=== PATIENT | female | born 1960 | race Caucasian/White ===

== ENCOUNTER → 2016-04-24 | Outpatient (CLI) | payer OTHER, BC ==
[~2016-04-24] VITALS: Ht 162.6 cm; Wt 65.3 kg
[~2016-04-24] MED LIST: ALDACTONE25 MG PO; AMBIEN 10 MG TA10 MG PO; ANTIVERT25 MG PO; ASPIRIN EC81 M1 PO; AUGMENTIN 875875 MG PO; B-12500 MCG PO; BACLOFEN 10 MG10 MG PO; BACLOFEN 10MG T10 MG PO; BENAZEPRIL HCL40 MG PO; BENTYL 20 MG TA20 M1 PO; BYSTOLIC 5 MG5 M1 PO; CARISOPRODOL 3350 MG PO; CYCLOBENZAPRINE5 MG PO; CYMBALTA60 MG PO; DHEA25 MG PO; ESTRACE1 MG PO; HYDROCODON-ACE1 EAC8 PO; INVOKANA100 MG PO; LANTUS SUBQ; LYRICA 50 MG50 MG PO; MORPHINE SULFATE PO; MS CONTIN 30 MG30 M1 GT; MS CONTIN 30 MG30 M1 PO; MS CONTIN15 MG PO; MS CONTIN30 MG PO; NEURONTIN 300300 M1 PO; NEXIUM40 MG PO; NORVASC10 MG PO; NOVOLOG MI100 UNIT/2 PO; OXYCONTIN10 M1 PO; SINGULAIR 10 MG10 M1 PO; SYMBICORT160 MCG/4. INH; VICODIN 5-5001 EACH PO; ZANAFLEX4 MG PO; ZETIA10 MG PO
--- NOTE | ~2016-04-24 | HPC ---
[facility] [place] [address] PAIN MANAGEMENT CONSULTATION Name: NORMAN KENNEDY Room #: REG RONNIE Moises.#: [id number] Admission: 04/24/16 Attend Phys: Danny Manrique MD Discharge: Date of : 60 Report #: [id number] THIS REPORT FOR: //name// CC: Elan Manrique DATE OF SERVICE: 04/24/2016 The patient presents back to the pain clinic today with her . She is on medication help with chronic pain related to multiple pain generators. She has a history of previous laminectomy. She has chronic low back pain with radiculopathy. 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 This combination disorders has created for her chronic debility. Medications have been very helpful and allow her to be more functional. She presents to the clinic today with her 2 grandsons, a twins, age 4. They could not be cuter ____. She seems quite happy and contented with them. She seems positive ____. MEDICATIONS: Reviewed and reconciled. She takes morphine 30 mg at bedtime and 15 mg twice a day, gabapentin 300 mg t.i.d., cyclobenzaprine 5 mg b.i.d., baclofen b.i.d., Ambien, Cymbalta, Zetia, ____, amlodipine, insulin, Symbicort. ALLERGIES: LASIX. PAST MEDICAL HISTORY: Significant for depression, myotonic dystrophy, rheumatoid arthritis, insulin-dependent diabetes. PHYSICAL EXAMINATION: Pleasant, alert and oriented, without signs of overmedication. She has a slightly unsteady gait. She complains of pain across the low back with myofascial tenderness in the lower extremities. IMPRESSION: 1. Chronic low back pain with radiculopathy. 2. Management of high risk medication. 3. Myotonic dystrophy. 4. Rheumatoid arthritis. 5. History of depression. 6. Asthma. 7. Insulin-dependent diabetes. PLAN: Medications renewed under terms of our agreement that include MS Contin 15 mg twice daily with 30 mg at bedtime, gabapentin 300 mg 3 times daily. Importance of safeguarding all medications, especially with young ones around [address] [address] PAIN MANAGEMENT CONSULTATION Name: NORMAN KENNEDY Room #: REG [facility].#: [id number] Admission: 04/24/16 Attend Phys: Danny Manrique MD Discharge: Date of : 60 Report #: [id number] was discussed. A followup visit is planned in 3 months. Her last urine drug screen was 6 months ago. <ELECTRONICALLY SIGNED> By: Danny Manrique MD 04/26/16 1329 1616 33 Danny Manrique MD /nt
[2016-04-24 13:04] VITALS: BP 149/84
== END ==
LOC: PAIN 07:28
DX: M45.9 Ankylosing spondylitis of unspecified sites in spine (principal); J45.909 Unspecified asthma, uncomplicated; E11.9 Type 2 diabetes mellitus without complications; G71.11 Myotonic muscular dystrophy; I10 Essential (primary) hypertension

== ENCOUNTER → 2016-07-11 | Outpatient (CLI) | payer OTHER, BC ==
[~2016-07-11] VITALS: Ht 160 cm; Wt 68.3 kg
--- NOTE | ~2016-07-11 | HPC ---
[facility] [address] [place] [address] PAIN MANAGEMENT CONSULTATION Name: NORMAN KENNEDY Room #: REG [facility].#: [id number] Admission: 07/11/16 Attend Phys: Danny Manrique MD Discharge: Date of : 60 Report #: [id number] THIS REPORT FOR: //name// CC: Elan Manrique DATE OF SERVICE: 07/11/2016 REASON FOR VISIT: Followup visit for muscular dystrophy, chronic low back pain with radiculopathy and management of high-risk medication. HISTORY OF PRESENT ILLNESS: The patient returns to pain clinic today for me to renew medications that I provide for her for intractable pain. She has done pretty well over the course of the last 3 months, have been no hospitalizations and no other additional office visits to other physicians. She is here for renewal of her medicines, which we provide for her carefully under terms of an opioid agreement. MEDICATIONS PROVIDED: Gabapentin 300 mg t.i.d. and MS Contin 15 mg morning and noon and 30 mg at bedtime. All other medications including cyclobenzaprine, baclofen, Ambien, Cymbalta, Zetia, amlodipine, insulin and Symbicort were provided by Dr. Elan Pressley. ALLERGIES: LASIX. PAST MEDICAL HISTORY: Significant for myotonic dystrophy, rheumatoid arthritis, insulin-dependent diabetes and depression. PHYSICAL EXAMINATION: GENERAL: She is pleasant, alert and oriented. She does not show signs of depression or anxiety day. She scores her pain as a 4/10. VITAL SIGNS: Blood pressure is 152/82, heart rate is 83 and BMI is 26.7. MUSCULOSKELETAL: She is able to move from sitting to standing position. She walks with somewhat spastic or weaken gait. She is unsteady a bit on her feet. Straight leg raising bilaterally reproduces radicular symptoms into the legs, which we have treated previously before with epidural injections. RESPIRATORY: Her breathing is comfortable. There is no evidence of ongoing asthma with no wheezing. IMPRESSION: 1. Chronic low back pain with radiculopathy. 2. Myotonic dystrophy. 3. Rheumatoid arthritis. 4. History of depression, currently in remission. 5. Asthma. [facility] [address] [place] [address] PAIN MANAGEMENT CONSULTATION Name: BRENTNORMAN ADKINS Room #: [facility].#: [id number] Admission: 07/11/16 Attend Phys: Danny Manrique MD Discharge: Date of : 60 Report #: [id number] 6. Insulin-dependent diabetes. PLAN: I renewed her medications gabapentin and MS Contin under terms of our agreement and reviewed with her the important aspects of care. We manage all medications. We provide for all medications for one pharmacy. She has signed her opioid agreement. She will be subjected to occasional urine drug screen, which I decided against today. She must safeguard all medications. Followup visit planned in the pain clinic and possibly in the next few weeks for an epidural steroid injection, but we were unable to perform that for her today at her request because of preauthorization requirements. By: [id number] Danny Manrique MD /nt
[2016-07-11 13:16] VITALS: BP 152/82
== END | disposition home or self-care (01) ==
LOC: PAIN 06:49
DX: M54.5 Low back pain (principal); M54.10 Radiculopathy, site unspecified; M06.9 Rheumatoid arthritis, unspecified; F32.9 Major depressive disorder, single episode, unspecified; J45.909 Unspecified asthma, uncomplicated; E11.9 Type 2 diabetes mellitus without complications

== ENCOUNTER → 2016-08-22 | Outpatient (CLI) | payer OTHER, BC ==
[~2016-08-22] VITALS: Ht 162.6 cm; Wt 67.5 kg
[~2016-08-22] MED LIST changes: +METHYLPHENIDATE5 MG PO
--- NOTE | ~2016-08-22 | HPC ---
[facility] [address] [address] PAIN MANAGEMENT CONSULTATION Name: BRENTNORMAN B Room #: REG RONNIE Moises.#: [id number] Admission: 08/22/16 Attend Phys: Danny Manrique MD Discharge: Date of : 60 Report #: [id number] THIS REPORT FOR: //name// CC: Elan Manrique DATE OF SERVICE: 08/22/2016 Followup visit for muscular dystrophy, low back pain with radiculopathy, post-laminectomy syndrome with radiculopathy. The patient returns to pain clinic today for an epidural injection. provided for medication on terms of an opioid agreement. She has been doing well on her current dose of morphine, which is at 60 mg a day right now. In addition to medication management, she occasionally has an epidural injection and radicular symptoms have increased to a point where they are overwriting her medication. Today, she is here for that purpose. Pain is tingling, burning and stabbing; it is a 4/10; it is in both legs. It radiates down through the L3-L4 distribution as well as in the back of her legs and L5-S1. She has had a previous laminectomy. The patient has asthma, insulin-dependent diabetes and myotonic muscular dystrophy. Gastroesophageal reflux disease is controlled and history of depression has also been improved recently. PHYSICAL EXAMINATION: Pleasant, alert and oriented, without oversedation. She is a little bit sleepy, she says and this is a common daily occurrence. Her blood pressure 152/82, heart rate 83 and BMI is 26. She moves from sitting to standing position. She is able to ambulate independently, although she has some weakness throughout the upper and lower extremities. She has mild spasticity with restrictive movements. IMPRESSION: 1. Chronic low back pain with radiculopathy. 2. Myotonic muscular dystrophy. 3. Rheumatoid arthritis. 4. History of depression, in remission. 5. Asthma. 6. Management of high risk medication. 7. Insulin-dependent diabetes. PLAN: Epidural steroid injection under fluoroscopic guidance. I have also agreed to renew her medications for a 4- and 8-week release dates so she has enough to be back for 3 months. I did see her in [place] [address] PAIN MANAGEMENT CONSULTATION Name: BRENTNORMAN PRATER [id number] Admission: 08/22/16 Attend Phys: Danny Manrique MD Discharge: Date of : 60 Report #: [id number] We discussed her constant low energy. She may benefit from the use of methylphenidate, which I have agreed to give her as a trial this month. Risks and benefits of the medication removed were reviewed. PROCEDURE: Epidural steroid injection under fluoroscopic guidance. She was taken to fluoroscopic suite, placed prone, skin prepped with ChloraPrep. Skin anesthetized over the L3-L4 interspace. A 20-gauge Tuohy epidural needle advanced in the epidural space with loss of resistance. No blood or CSF aspirated. 1 mL of Omnipaque injected. Good spread of dye observed in the epidural space followed by 3 mL of 0.5% lidocaine mixed with 80 mg triamcinolone. She tolerated the procedure well and was observed for 45 minutes and discharged. Followup visit planned in 3 months. By: [id number] Danny Manrique MD /nt
[2016-08-22 12:46] VITALS: BP 139/66
== END | disposition home or self-care (01) ==
LOC: PAIN 07-22 06:51
DX: M54.16 Radiculopathy, lumbar region (principal); G89.29 Other chronic pain; E11.9 Type 2 diabetes mellitus without complications; G71.11 Myotonic muscular dystrophy; M96.1 Postlaminectomy syndrome, not elsewhere classified; M06.9 Rheumatoid arthritis, unspecified; K21.9 Gastro-esophageal reflux disease without esophagitis; F32.9 Major depressive disorder, single episode, unspecified; J45.909 Unspecified asthma, uncomplicated; Z79.4 Long term (current) use of insulin

== ENCOUNTER → 2016-10-28 | Outpatient (CLI) | payer OTHER, BC ==
[~2016-10-28] VITALS: Ht 162.6 cm; Wt 65.8 kg
[2016-10-28 08:16] VITALS: BP 144/71
== END | disposition home or self-care (01) ==
LOC: PAIN 06:38
DX: M54.16 Radiculopathy, lumbar region (principal); G89.29 Other chronic pain; G71.11 Myotonic muscular dystrophy; M06.9 Rheumatoid arthritis, unspecified; J45.909 Unspecified asthma, uncomplicated; J32.9 Chronic sinusitis, unspecified; E11.9 Type 2 diabetes mellitus without complications; F11.20 Opioid dependence, uncomplicated; Z88.8 Allergy status to other drugs, medicaments and biological substances; Z79.4 Long term (current) use of insulin; Z79.82 Long term (current) use of aspirin

== ENCOUNTER → 2017-02-03 | Outpatient (CLI) | payer OTHER, BC ==
[~2017-02-03] VITALS: Ht 162.6 cm; Wt 72.6 kg
--- NOTE | ~2017-02-03 | HPC ---
[facility] [address] [address] PAIN MANAGEMENT CONSULTATION Name: NORMAN KENNEDY [facility] [id number] Admission: 02/03/17 Attend Phys: Danny Manrique MD Discharge: Date of : 60 Report #: [id number] THIS REPORT FOR: //name// CC: Elan Manrique DATE OF SERVICE: 02/03/2017 Follow up visit for medication management and for treatment of lumbar radiculopathy, post-laminectomy. The patient is here today requesting an epidural injection, she typically responds with an excellent pain relief for up to several months. She has had only two injections within the last year. Pain is now returning. She describes it as aching sensation, 6/10, sharp and stabbing and it radiates into both legs following an L4-L5 and L5-S1 distribution. For medication, I provided her with morphine 30 mg at bedtime and 50 mg twice a day during the day. She is able do this without affecting her cognitive or thinking abilities. She takes gabapentin as well t.i.d. She and her are watching their granddaughter and grandchildren who are in preschool much of the day. This requires a lot of energy and she finds that she sleeps on and off through the day, oftentimes taking a nap with the baby who is with them today. She sleeps sometimes in the evening as well after the parents come home, they all live together and then she does not go to bed until 3:00 in the morning. We talked about the importance of sleep as an important treatment for patients, particularly with muscular dystrophy or other conditions. Sleep seems to be one of the liu ingredients to wellness and perhaps she would do better if she can get some diurnal rhythm to her sleep with solid 6-8 hours, but does not sound like that will happen with her current social situation. Overall, she seems upbeat and positive, is grateful for the opportunity to care for her grandchildren and is grateful for the pain relief by her medication in allowing her to do so. PHYSICAL EXAMINATION: She seems calm and relaxed. I have seen her much more unstable in the past. Her blood pressure is 132/78, heart rate 86. Her chest is clear and her cardiac rhythm is regular. She has spasticity to her gait and weakness noted bilaterally in the lower extremities due to her muscular dystrophy. IMPRESSION: 1. Chronic low back pain with radiculopathy, post-laminectomy. 2. Myotonic muscular dystrophy. 3. [place] [address] PAIN MANAGEMENT CONSULTATION Name: NORMAN KENNEDY Room #: REG [facility]#: [id number] Admission: 02/03/17 Attend Phys: Danny Manrique MD Discharge: Date of : 60 Report #: [id number] 4. History of depression, in remission. 5. Asthma. 6. Management of high risk medication. 7. Insulin-dependent diabetes. PROCEDURE: 1. Epidural steroid injection under fluoroscopic guidance. 2. Renew her medications under terms of our opioid agreement with important issue is safeguarding reviewed with her and her . PROCEDURE: She was taken to fluoroscopic suite, placed prone, skin prepped with ChloraPrep over L3-L4. A 20-gauge Tuohy epidural needle advanced in the epidural space with loss of resistance technique. No blood or CSF was aspirated. 1 mL of Omnipaque was injected. Good spread of dye observed in the epidural space followed by 3 mL of 0.5% lidocaine mixed with 80 mg of triamcinolone. She tolerated the procedure well and was observed for 45 minutes and discharged. Followup visit planned as needed. By: [id number] Danny Manrique MD /nt
[2017-02-03 14:08] VITALS: BP 138/82
== END | disposition home or self-care (01) ==
LOC: PAIN 07:28
DX: M54.16 Radiculopathy, lumbar region (principal); M96.1 Postlaminectomy syndrome, not elsewhere classified; G89.29 Other chronic pain; G71.11 Myotonic muscular dystrophy; E11.9 Type 2 diabetes mellitus without complications; J45.909 Unspecified asthma, uncomplicated; F32.89 Other specified depressive episodes; Z87.39 Personal history of other diseases of the musculoskeletal system and connective tissue; Z79.891 Long term (current) use of opiate analgesic; Z79.4 Long term (current) use of insulin; Z79.899 Other long term (current) drug therapy

== ENCOUNTER 2017-03-17 20:41 | Inpatient (IN) | payer OTHER, BC ==
[~2017-03-17] VITALS: Ht 162.6 cm; Wt 73.0 kg
--- NOTE | ~2017-03-17 | H ---
[facility] [place] [address] [address] HISTORY AND PHYSICAL Name: NORMAN KENNEDY Room #: 349-I [facility] IN [place].R.#: [id number] Admission: 03/18/17 Attend Phys: Elan Pressley MD, [facility] Discharge: 03/21/17 Date of : 60 Report #: [id number] THIS REPORT FOR: //name// CC: Elan Badillo MD DATE OF SERVICE: 03/18/2017 CHIEF COMPLAINT: Headache. HISTORY OF PRESENT ILLNESS: The patient is a 56-year-old white female well known to me. She has type 1 muscular dystrophy as well as insulin-dependent diabetes. She had severe headache following a productive cough and cold with several days' evolution. She was evaluated in the Emergency Department at [facility]. A lumbar puncture was performed and the chemistry of the CSF appeared to be consistent with aseptic meningitis. She was placed in the hospital and Dr. Badillo was consulted. PAST MEDICAL AND SURGICAL HISTORY: Hypertension, hyperlipidemia, type 1 insulin-dependent diabetes mellitus, asthma, myotonic muscular dystrophy, gastroesophageal reflux, depression, right thyroid lobectomy, hysterectomy, back surgery, bilateral shoulder surgeries, and . MEDICATIONS: Gabapentin 300 mg 1 p.o. t.i.d., MS Contin 30 mg 1 p.o. at bedtime, cyclobenzaprine 5 mg 1 p.o. b.i.d. p.r.n. muscle spasm, morphine sulfate ER, MS Contin 15 mg 1 p.o. b.i.d., amlodipine 10 mg 1 p.o. daily, Symbicort 160/4.5 two puffs b.i.d., Bystolic 5 mg 1 p.o. daily, aspirin enteric-coated 1 p.o. daily, Lotensin 40 mg 1 p.o. b.i.d., Zetia 10 mg 1 p.o. q. p.m., duloxetine 60 mg b.i.d., Estrace 1 mg p.o. daily, Nexium 40 mg 1 p.o. q. p.m., NovoLog 70/30, 48 units p.o. q.i.d., ____ 25 mcg p.o. at bedtime, Singulair 10 mg 1 p.o. daily, Lantus insulin 50 units subQ at bedtime, baclofen 10 mg p.o. b.i.d. ALLERGIES: LASIX. SOCIAL HISTORY: , nonsmoker, lives at home with her . FAMILY HISTORY: Noncontributory. REVIEW OF SYSTEMS: GENERAL: Headache, fatigue, upper respiratory infection symptoms. EYES: No visual changes. ENT: No problems with hearing, swallow, taste or smell. CARDIOVASCULAR: No chest pain or shortness of breath. RESPIRATORY: No cough. GASTROINTESTINAL: No abdominal pain. [address] [address] HISTORY AND PHYSICAL Name: NORMAN KENNEDY Room #: 349-I [facility] IN [facility].#: [id number] Admission: 03/18/17 Attend Phys: Elan Pressley MD, FAAF Discharge: 03/21/17 Date of : 60 Report #: [id number] GENITOURINARY: She did have some urinary retention on arrival, which resolved after single episode of straight cath. MUSCULOSKELETAL: She has chronic muscle and joint pain and muscular dystrophy. DERMATOLOGIC: No disturbing lesions or rash. NEUROLOGIC: Severe headache. Lumbar puncture findings consistent with aseptic meningitis. Remainder of system review is negative. PHYSICAL EXAMINATION: VITAL SIGNS: Temperature 36.4, pulse 87, respirations 20, blood pressure 149/81, pulse ox on room air is 100%. She weighs 65.77 kg or 145 pounds. GENERAL: She appears fatigued. HEENT: Pupils equal, round, react to light and accommodation. Extraocular muscles intact. She is photophobic. Oropharynx is unremarkable. NECK: Supple. COR: S1, S2. LUNGS: Clear. ABDOMEN: Soft, nontender. EXTREMITIES: No cyanosis, clubbing, or edema. NEUROLOGIC: No focal deficits. LABORATORY DATA: CSF chemistry: White count 225, CSF glucose 79, CSF total protein 75. Urinalysis: Trace blood, many urinary bacteria, random glucose greater than 10 squamous epithelial cells. Serum chemistry: Sodium 133, potassium 4.1, chloride 97, CO2 of 29, BUN 13, creatinine 0.4, glucose 188, estimated glomerular filtration rate 165, lactic acid 1.1, calcium is 10.0. Total bilirubin 0.6, direct bilirubin less than 0.1, AST 35, ALT 62, alk phos 195, total protein 8.2, albumin 3.3. Lipase 37. Protime is 10.3. INR 1.0. White count is 19.7000, hemoglobin 16.9, hematocrit 51.9, platelets 216,000. Differential white count 73% segmented neutrophils, 2% band forms, 19% lymphocytes, 5% monocytes. CT scan of the head was negative. Chest x-ray also no acute process. CT scan of the abdomen and pelvis, there is mild basilar pulmonary atelectasis, some posterior right pleural thickening measures 6 mL difficult to exclude. Bladder was distended and she has retained resident left renal calculi. ASSESSMENT: Viral meningitis, headache, leukocytosis, nausea, vomiting. PLAN: Admit to hospital, symptomatic treatment, ID consult placed with Dr. Badillo, follow blood sugars, check labs serially. <ELECTRONICALLY SIGNED> By: Elan Pressley MD, FABIAN, FACEP 04/15/17 1645 0023 0112 Elan Pressley MD, FABIAN, FACEP /nt
--- NOTE | ~2017-03-17 | D ---
[facility] [place] [address] DISCHARGE SUMMARY Name: NORMAN KENNEDY Room #: 349-I [facility] IN ..#: [id number] Admission: 03/18/17 Attend Phys: Elan Pressley MD, FAAF Discharge: 03/21/17 Date of : 60 Report #: [id number] THIS REPORT FOR: //name// CC: Elan Badillo MD DATE OF SERVICE: 03/21/2017 This 56-year-old white female was admitted with severe headache with cough, cold and fever. Her past history includes muscular dystrophy, insulin-dependent diabetes, hypertension, asthma, gastroesophageal reflux, depression, right thyroid lobectomy, hysterectomy, back surgery, bilateral shoulder surgeries and . HOSPITAL COURSE: Initial physical revealed a febrile, uncomfortable, overweight white female. Neck was supple. ENT essentially negative. Lungs were clear. Cardiac exam negative. The patient underwent a spinal tap in the Emergency Room with findings of white count elevation of 225 with mostly lymphocytes. Protein was elevated as well. Blood sugar normal. Other cultures were negative. Sodium 133, potassium 4.1, CO2 29, BUN 13, creatinine 0.4, blood sugar 188, estimated GFR 165. Lactic acid 1.1, calcium 10.0, bilirubin 0.8. Lipase normal. Liver enzymes reveal elevated SGPT of 62, otherwise normal. White count was elevated to 19,000, hemoglobin 16.9. CAT scan of the head was negative. Chest x-ray was negative. CAT scan of the abdomen and pelvis revealed pulmonary atelectasis with a left renal calculus. The patient was admitted with presumptive diagnosis of viral meningitis, placed on IV fluids, seen in consult by Dr. Badillo of Infectious Disease, who thought she had likely viral aseptic meningitis as well as development of blistering rash on the right buttock, crossing the midline slightly, consistent with herpes simplex 2, for which she initially received IV acyclovir and then p.o. Famvir. She progressively improved. She was able to ambulate and had stable vital signs. Discharge white count was 7000, hemoglobin 14.7. Sodium 140, potassium 3.7, CO2 28, BUN 11, creatinine 0.3, estimated GFR of 230. Blood sugar 217, calcium 9.0. On 03/21/2017, the patient was ambulatory, had a good appetite, stable vital signs, had no more pain. Her blistering rash on her back was resolving and she was stable for discharge home on a diabetic, low-salt diet. DISCHARGE MEDICATIONS: Famvir 500 mg t.i.d. for another 4 days, amlodipine 10 mg daily, NovoLog mix 50 units q.i.d. after meals as she was doing before admission, Lantus 50 units at bedtime, Singulair 10 mg daily, ezetimibe 10 mg at bedtime, DHEA 25 mg daily, Symbicort 160/4.5 two puffs b.i.d., duloxetine 60 mg b.i.d., Bystolic 5 mg daily, aspirin 81 mg daily, benazepril 40 mg b.i.d., estradiol 1 mg daily, Nexium 40 mg daily, baclofen 10 mg b.i.d., morphine sulfate 15 mg b.i.d. and MS Contin 30 mg at bedtime, gabapentin 300 mg t.i.d., [facility] [address] [place] [address] DISCHARGE SUMMARY Name: BRENT,NORMAN B Room #: 349-I [facility] M.R.#: [id number] Admission: 03/18/17 Attend Phys: Elan Pressley MD, FAAF Discharge: 03/21/17 Date of : 60 Report #: [id number] Enablex 7.5 mg daily, methylphenidate 5 mg daily, B12 500 mcg daily. She will see Dr. Pressley in 2 weeks for followup exam. FINAL DIAGNOSES: 1. Aseptic meningitis. 2. Herpes simplex type 2, on right buttock. 3. Hypertension. 4. Insulin-dependent diabetes. 5. Muscular dystrophy. <ELECTRONICALLY SIGNED> By: Mahendra Pina DO 03/28/17 0749 0837 [id number] Mahendra Pina DO /nt
--- NOTE | ~2017-03-17 | HC ---
[facility] [place] [address] CONSULTATION Name: NORMAN KENNEDY Room #: 349-I ADM IN M.R.#: [id number] Admission: 03/18/17 Attend Phys: Elan Pressley MD, [facility] Discharge: Date of : 60 Report #: [id number] THIS REPORT FOR: //name// CC: Elan Pressley DATE OF SERVICE: 03/18/2017 ATTENDING PHYSICIAN: Elan Pressley MD REASON FOR CONSULTATION: Meningitis. HISTORY OF PRESENT ILLNESS: The patient is a 56-year-old white woman admitted through the emergency room with a 5-day history of feeling unwell and having severe headaches associated also with some nausea and vomiting. The patient relates no similar episodes in the past and she is not aware of ever having had herpetic infections. The patient and relate several family members and children are ill with upper respiratory tract type infection. 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 DRUG ALLERGIES: LASIX. MEDICATIONS: She is on treatment with acyclovir 700 mg IV every 8 hours, p.r.n. promethazine 25 mg every 6 hours, intravenous fluids, normal saline, she has also received vancomycin and Rocephin intravenously in the emergency room. At home, this patient is on treatment with gabapentin, morphine controlled release. Her lists of medications include darifenacin, amlodipine, budesonide, nebivolol, aspirin, benazepril, ezetimibe, duloxetine, estradiol, esomeprazole, insulin glargine, and baclofen. SOCIAL HISTORY: . Grown children. REVIEW OF SYSTEMS: Besides severe headaches, the patient relates having had night sweats, nausea, and vomiting. Other problems are chronic in nature. She had chronic lower extremity pain due to her muscular dystrophy. PHYSICAL EXAMINATION: GENERAL: This is a well-developed, chronically ill-appearing woman, appearing older than stated age. VITAL SIGNS: Temperature 97.8, pulse 62, respirations 18, BP 105/60, height 5 feet 4 inches, and weight 161 pounds. HEENMT: Head normocephalic, atraumatic. Pupils reactive. The patient is said to have retinopathy, requiring treatment. Mouth, no thrush, hairy leukoplakia, [address] [address] CONSULTATION Name: NORMAN KENNEDY Room #: 349-I [facility]#: [id number] Admission: 03/18/17 Attend Phys: Elan Pressley MD, FAAF Discharge: Date of : 60 Report #: [id number] good oral dentition. NECK: Stiff. No palpable lymph nodes and surgical scars of previous thyroidectomy. LUNGS: Clear to auscultation. HEART: S1, S2. No gallop or murmur. BREASTS: Deferred. ABDOMEN: Obese, soft, no masses or megaly. PELVIC: Deferred. RECTAL: Deferred. EXTREMITIES: Atrophy muscle groups. NEUROLOGIC: Weakness. No focal signs or symptoms. LABORATORY DATA: The spinal fluid revealed this to be clear with 225 WBCs and the differential revealed 10% neutrophils, 11% monocytes, 79% lymphocytes, the CSF glucose 79 and CSF protein 75. Sodium 133, potassium 4.1, BUN 13, creatinine 0.4, elevation of alkaline phosphatase of 195, and hypoalbuminemia of 3.3 noted. The WBC on admission is 19,700 with hemoglobin of 16.9 g/dL and platelets 216,000, the white blood cell count differential revealed 73% segmented neutrophils and 19% lymphocytes. The urinalysis revealed 2+ proteinuria, trace glucose, trace blood. The microscopic exam revealed greater than 10 squamous epithelial cells and many bacteria. MICROBIOLOGY DATA: The CSF Gram stain revealed many WBCs, no organisms. The blood cultures remain negative so far. RADIOLOGY EVALUATION: A CT scan of abdomen and pelvis was obtained, it revealed a kidney stone in the left side, no evidence of obstruction. There are mild areas of basilar pulmonary atelectasis and pleural thickening on the base on the right side. Chest x-ray negative. CT scan of the head revealed no significant abnormalities. ASSESSMENT: 1. Aseptic meningitis-likely viral. 2. Diabetes mellitus. 3. Hypoalbuminemia. 4. Myotonic muscular dystrophy. 5. Elevation of alkaline phosphatase. 6. Chronic pain syndrome. SUGGESTIONS: Recommend symptomatic treatment, bed rest, fluid intravenously since the patient appeared to be mildly dehydrated. ESR. CRP. Discontinue acyclovir. Continue symptomatic treatment. Expect improvement in 24-[address] [address] CONSULTATION Name: BRENTNORMAN Theresa Room #: 349-I ADM IN M.R.#: [id number] Admission: 03/18/17 Attend Phys: Elan Pressley MD, FAAF Discharge: Date of : 60 Report #: [id number] Elan Pressley, thank you for requesting my suggestions in the care of your patient. <ELECTRONICALLY SIGNED> By: Iban Badillo MD 03/19/17 0913 0942 1045 Iban Badillo MD /nt
[2017-03-17 20:43] VITALS: BP 149/81
[2017-03-17 22:02] LABS: HEMATOCRIT 51.9 % (37.0-47.0); HEMOGLOBIN 16.9 gm/dL (12.0-15.0); MCH 25.6 pg (26.0-34.0); MCHC 32.6 g/dL (28.0-37.0); MCV 78.6 fL (80.0-100.0); PLATELET COUNT 216 thou/uL (150-400); RDW 14.4 % (10.5-14.5); WBC 19.7 thou/uL (4.0-11.0)
[2017-03-17 22:03] LABS: ANION GAP 7 mmol/L (7-16); BUN 13 mg/dL (7-18); CHLORIDE 97 mmol/L (98-107); CO2 29 mmol/L (21-32); CREATININE 0.4 mg/dL (0.6-1.0); GLUCOSE 188 mg/dL (74-106); POTASSIUM 4.1 mmol/L (3.5-5.1); SODIUM 133 mmol/L (136-145)
[2017-03-17 22:09] LABS: ALBUMIN 3.3 g/dL (3.4-5.0); DIRECT BILIRUBIN < 0.1 mg/dL (<0.1-0.3); LIPASE 37 U/L (73-393); SGOT 35 U/L (15-37); SGPT 62 U/L (30-65); TOTAL BILIRUBIN 0.6 mg/dL (<0.1-1.0); TOTAL PROTEIN 8.2 g/dL (6.4-8.2)
[2017-03-17 22:27] LABS: ABSOLUTE NEUTROPHILS 14.8 thou/uL (1.4-8.2)
[2017-03-17 22:28] LABS: ANISOCYTOSIS 1+
[2017-03-17] MEDS ORDERED: ENABLEX 7.5 MG7.5 M1 PO (23:52)
[2017-03-18 00:02] LABS: PROTIME 10.3 Seconds (9.3-11.4)
[2017-03-18 00:55] LABS: URINE BILIRUBIN NEGATIVE (Negative); URINE BLOOD TRACE (Negative); URINE CLARITY SL CLOUDY; URINE COLOR YELLOW; URINE GLUCOSE-RANDOM* TRACE (Negative); URINE KETONES 1+ (Negative); URINE LEUKOCYTES NEGATIVE (Negative); URINE NITRITE NEGATIVE (Negative); URINE PROTEIN (DIPSTICK) 2+ (Negative)
[2017-03-18 01:13] LABS: SQUAMOUS >10 Many /LPF (0-3)
[2017-03-18 01:14] LABS: BACTERIA >30 Many /HPF (None Seen); CASTS None Seen /LPF (None Seen); CRYSTALS None Seen /LPF (None Seen); URINE RBC 0-2 Rare /HPF (0-2); URINE WBC 0-5 Rare /HPF (0-5)
[2017-03-18 02:38] LABS: CSF GLUCOSE 79 mg/dL (40-70); CSF PROTEIN 75 mg/dL (15-45)
[2017-03-18 03:00] LABS: CSF CLARITY CLEAR; CSF COLOR COLORLESS; VOLUME 4 ml
[2017-03-18 03:01] LABS: CSF RBC 3 /mm3
[2017-03-18 03:02] LABS: CSF WBC 225 /mm3 (0-10)
[2017-03-18 03:17] LABS: CSF POLYS 10 %
[2017-03-18 03:18] LABS: CSF EOSINOPHILS 0 %; CSF LYMPHOCYTES 79 %; CSF MONONUCLEARS 11 %
[2017-03-18 04:47] VITALS: BP 138/82
[2017-03-18 08:08] VITALS: BP 105/60
[2017-03-18 12:15] VITALS: BP 107/72
[2017-03-18 17:34] VITALS: BP 108/75
[2017-03-18 20:28] VITALS: BP 173/85
[2017-03-19 00:01] VITALS: BP 152/82
[2017-03-19 03:45] VITALS: BP 160/90
[2017-03-19 06:49] LABS: HEMATOCRIT 45.8 % (37.0-47.0); MCH 25.3 pg (26.0-34.0); MCHC 31.9 g/dL (28.0-37.0); MCV 79.4 fL (80.0-100.0); PLATELET COUNT 196 thou/uL (150-400); RBC 5.77 mil/uL (4.20-5.00); RDW 14.3 % (10.5-14.5); WBC 6.1 thou/uL (4.0-11.0)
[2017-03-19 06:54] LABS: HEMOGLOBIN 14.6 gm/dL (12.0-15.0)
[2017-03-19 07:00] LABS: ALBUMIN 2.7 g/dL (3.4-5.0); CALCIUM 9.4 mg/dL (8.5-10.1); CREATININE 0.3 mg/dL (0.6-1.0); POTASSIUM 3.7 mmol/L (3.5-5.1); TOTAL BILIRUBIN 0.4 mg/dL (<0.1-1.0); TOTAL PROTEIN 6.6 g/dL (6.4-8.2)
[2017-03-19 07:47] VITALS: BP 143/79
[2017-03-19 08:24] LABS: ABSOLUTE NEUTROPHILS 3.4 thou/uL (1.4-8.2); ATYPICAL LYMPHS 5 %
[2017-03-19 08:25] LABS: ANISOCYTOSIS SLIGHT
[2017-03-19 15:03] VITALS: BP 137/64
[2017-03-19 17:21] LABS: HEMATOCRIT 47.4 % (37.0-47.0); HEMOGLOBIN 15.2 gm/dL (12.0-15.0)
[2017-03-19 19:01] VITALS: BP 144/72
[2017-03-19 22:04] VITALS: BP 130/69
[2017-03-20 04:17] VITALS: BP 132/59
[2017-03-20 07:04] VITALS: BP 139/78
[2017-03-20 10:27] LABS: HSV PCR SOURCE BLISTER
[2017-03-20 11:26] VITALS: BP 113/53
[2017-03-20 15:35] VITALS: BP 116/72
[2017-03-20 19:23] VITALS: BP 119/66
[2017-03-21 04:18] VITALS: BP 143/86
[2017-03-21 06:47] LABS: ABSOLUTE NEUTROPHILS 3.1 thou/uL (1.4-8.2); BASOPHILS 0.4 % (0.0-2.0); EOSINOPHILS 1.1 % (0.0-3.0); HEMATOCRIT 45.7 % (37.0-47.0); HEMOGLOBIN 14.7 gm/dL (12.0-15.0); LYMPHOCYTES 42.2 % (24.0-44.0); MCH 25.3 pg (26.0-34.0); MCHC 32.2 g/dL (28.0-37.0); MCV 78.8 fL (80.0-100.0); MONOCYTES 11.8 % (1.0-8.0); PLATELET COUNT 192 thou/uL (150-400); POLYS 44.5 % (36.0-66.0); RDW 14.3 % (10.5-14.5)
[2017-03-21 07:02] LABS: CREATININE 0.3 mg/dL (0.6-1.0); POTASSIUM 3.7 mmol/L (3.5-5.1)
[2017-03-21 07:25] VITALS: BP 131/68
[2017-03-21] MEDS ORDERED: FAMCYCLOVIR 50500 M1 PO (08:27)
[2017-03-21 09:26] VITALS: BP 131/68
[2017-03-21 11:57] VITALS: BP 131/68
[2017-03-21 15:11] LABS: GLYCOHEMOGLOBIN (HGB A1C) 10.8 % (4.8-5.6)
[2017-03-21 21:08] LABS: HSV 1 DNA Negative (Negative); HSV 2 DNA Negative (Negative)
[2017-05-21] MEDS ORDERED: MS CONTIN30 MG PO (13:49)
[2017-05-21] MEDS ORDERED: NEURONTIN 300300 M1 PO (13:49)
[2017-05-21] MEDS ORDERED: MS CONTIN 30 MG30 M1 PO (13:49)
[2017-05-21] MEDS ORDERED: MS CONTIN15 MG PO ×2 (13:49)
[2017-05-21] MEDS ORDERED: FLEXERIL PO (13:59)
[2017-09-24] MEDS ORDERED: NEURONTIN 300300 M1 PO (11:36)
[2017-09-24] MEDS ORDERED: MS CONTIN30 MG PO (11:36)
[2017-09-24] MEDS ORDERED: MS CONTIN 30 MG30 M1 PO (11:36)
[2017-09-24] MEDS ORDERED: MS CONTIN15 MG PO ×2 (11:36)
[2017-09-24] MEDS ORDERED: FLEXERIL PO (11:36)
[2018-01-19] MEDS ORDERED: BELSOMRA20 MG PO (10:52)
[2018-01-19] MEDS ORDERED: BUSPIRONE HCL15 MG PO (10:56)
[2018-01-19] MEDS ORDERED: TRESIBA FL100 UNIT/1 SUBQ (10:57)
[2018-01-19] MEDS ORDERED: LINZESS290 MCG PO (10:58)
[2018-01-19] MEDS ORDERED: MS CONTIN15 MG PO ×3 (11:36→11:37)
[2018-01-19] MEDS ORDERED: NEURONTIN 300300 M1 PO (11:36)
== END 2017-03-21 11:55 | disposition home or self-care (01) | DRG 99 ==
LOC: ER 20:41 → EROBS 03-18 03:30 → 3W 03-18 03:30 → ENTRNSPT 03-21 11:44 → EDTRNSPTSTS 03-21 11:52 → 3W 03-21 11:55
PROVIDERS: Emergency Medicine; Family Medicine; Internal Medicine; Internal Medicine Infectious Disease
PROC: 009U3ZX Drainage of Spinal Canal, Percutaneous Approach, Diagnostic (ICD-10-PCS; principal; 2017-03-17)
DX: G03.0 Nonpyogenic meningitis (principal); I10 Essential (primary) hypertension; E78.00 Pure hypercholesterolemia, unspecified; E11.9 Type 2 diabetes mellitus without complications; J45.909 Unspecified asthma, uncomplicated; K21.9 Gastro-esophageal reflux disease without esophagitis; F32.9 Major depressive disorder, single episode, unspecified; E78.5 Hyperlipidemia, unspecified; B00.9 Herpesviral infection, unspecified; G89.4 Chronic pain syndrome; G71.11 Myotonic muscular dystrophy; R33.9 Retention of urine, unspecified; Z79.899 Other long term (current) drug therapy; Z90.710 Acquired absence of both cervix and uterus; Z88.8 Allergy status to other drugs, medicaments and biological substances; Z79.4 Long term (current) use of insulin; Z23 Encounter for immunization
CPT/HCPCS: 10779

== ENCOUNTER → 2017-04-07 | Outpatient (CLI) | payer OTHER, BC ==
[~2017-04-07] MED LIST changes: +ENABLEX 7.5 MG7.5 M1 PO; +FAMCYCLOVIR 50500 M1 PO
--- NOTE | ~2017-04-07 | HC ---
[facility] [place] [address] CONSULTATION Name: BRENTNORMAN Theresa [id number] Admission: 04/07/17 Attend Phys: Iban Hannon Discharge: Date of : 60 Report #: [id number] THIS REPORT FOR: //name// CC: Elan Badillo DATE OF SERVICE: 04/07/2017 [facility] OUTPATIENT PROGRESS NOTE HISTORY OF PRESENT ILLNESS: The patient is a 56-year-old white woman admitted to [facility] on March 18, and diagnosed to have aseptic meningitis, she was treated symptomatically. The next day after admission or thereabout, the patient developed some perineal and some coccygeal lesions compatible with herpetic infection. The lesions were unroofed and sent for HSV-1 and 2 by PCR and they were reported negative. The patient received Famvir, she has completed this treatment and she is feeling better. She denies having headaches and the perineal and coccygeal lesions are completely healed. PAST MEDICAL HISTORY: Myotonic muscular dystrophy for 10 years. Hysterectomy. Back surgery. Bilateral shoulder surgery. Diabetes mellitus. Bronchial asthma. Right thyroid lobectomy in 2011. MEDICATIONS: She is on treatment now with gabapentin, morphine sulfate controlled release, darifenacin, amlodipine, budesonide, nebivolol, benazepril, ezetimibe, duloxetine, estradiol, omeprazole, insulin glargine, and baclofen. She had finished the famciclovir orally. REVIEW OF SYSTEMS: Essentially noncontributory other than weakness related to her myotonic muscular dystrophy. Denies headaches. The perineal and coccygeal lesions are healed. PHYSICAL EXAMINATION: GENERAL: Well-developed woman, not toxic looking, no distress. VITAL SIGNS: Temperature 98.1, O2 saturation 92% on room air, pulse 82, and BP 140/76. HEENMT: Within range. NECK: Surgical scar from previous right thyroid lobectomy. LUNGS: Clear. HEART: S1, S2. No gallop or murmur. DERMATOLOGIC: The coccygeal lesions are completely healed. NEUROLOGIC: Weakness throughout. LABORATORY DATA: The HSV-1 and 2 by PCR negative. [address] [address] CONSULTATION Name: NORMAN KENNEDY [id number] Admission: 04/07/17 Attend Phys: Iban Hannon Discharge: Date of : 60 Report #: [id number] ASSESSMENT: 1. Aseptic meningitis, question etiology. 2. Possible shingles, coccygeal region. 3. Myotonic muscular dystrophy. 4. Diabetes mellitus. PLAN: At present time, no indication for antiviral - Famvir. The patient will continue to follow with Dr. Elan Pressley. I doubt very much she will have a recurrence of shingles. I suppose we could obtain serologic studies to document whether she had high titers of this viral infection. We will defer that to Dr. Elan Pressley. I will visit with her on as needed basis. I would like to hear from her if there is recurrence of problems Dr. Pressley, thank you for requesting my suggestions in the care of your patient. <ELECTRONICALLY SIGNED> By: Iban Badillo MD 04/08/17 0913 1322 01 Iban Badillo MD /nt
== END ==
LOC: SEN 12:31
DX: E11.9 Type 2 diabetes mellitus without complications (principal); G71.11 Myotonic muscular dystrophy; G03.0 Nonpyogenic meningitis

== ENCOUNTER 2017-05-08 20:44 | Emergency (ER) | payer OTHER, BC ==
[~2017-05-08] VITALS: Ht 162.6 cm; Wt 64.9 kg
--- NOTE | ~2017-05-08 | EKG ---
[address] [address] ELECTROCARDIOGRAM REPORT Name: NORMAN KENNEDY Room #: [facility]#: [id number] Admission: 05/08/17 Attend Phys: Discharge: 05/09/17 Date of : 60 Report #: [id number] THIS REPORT FOR: //name// [facility] ED Test Date: 2017-05-08 Test Time: 21:15:23 Pat Name: NORMAN KENNEDY Department: Room: Gender: F Aircraft Technician: MZOOK : 1960 Requested By: Lisa Albert Order Number: [id number] MD: Fco Edmondson Measurements Intervals [place] Rate: 78 P: 18 DE: 167 QRS: -20 QRSD: 137 T: 120 QT: 421 QTc: 480 Interpretive Statements Sinus rhythm Left bundle branch block Compared to ECG 04/22/2015 18:36:48 Left bundle-branch block now present Electronically Signed On 05-09-2017 7:31:48 SENIOR UNDERWRITING ASSISTANT by Fco Edmondson [email or web address] <ELECTRONICALLY SIGNED> By: Fco Edmondson MD, [facility] 05/09/17 0731 14 14 Fco Edmondson MD, FAC /EPI
[2017-05-08 22:11] LABS: BASOPHILS 0.3 % (0.0-2.0); EOSINOPHILS 0.5 % (0.0-3.0); HEMATOCRIT 45.1 % (37.0-47.0); LYMPHOCYTES 27.9 % (24.0-44.0); MCH 26.7 pg (26.0-34.0); MCHC 33.2 g/dL (28.0-37.0); MCV 80.5 fL (80.0-100.0); PLATELET COUNT 207 thou/uL (150-400); POLYS 63.3 % (36.0-66.0); RDW 14.4 % (10.5-14.5)
[2017-05-08 22:21] LABS: ANION GAP 8 mmol/L (7-16); BUN 11 mg/dL (7-18); CHLORIDE 102 mmol/L (98-107); CO2 28 mmol/L (21-32); CREATININE 0.5 mg/dL (0.6-1.0); GLUCOSE 227 mg/dL (74-106); POTASSIUM 3.5 mmol/L (3.5-5.1); SODIUM 138 mmol/L (136-145)
[2017-05-08 22:29] LABS: ALBUMIN 3.1 g/dL (3.4-5.0); SGOT 44 U/L (15-37); SGPT 47 U/L (30-65); TOTAL BILIRUBIN 0.3 mg/dL (<0.1-1.0); TOTAL PROTEIN 6.8 g/dL (6.4-8.2); TROPONIN-I < 0.04 ng/mL (<0.06)
[2017-05-08 23:14] LABS: URINE BILIRUBIN NEGATIVE (Negative); URINE BLOOD TRACE (Negative); URINE CLARITY CLEAR; URINE COLOR YELLOW; URINE GLUCOSE-RANDOM* 3+ (Negative); URINE KETONES NEGATIVE (Negative); URINE LEUKOCYTES NEGATIVE (Negative); URINE NITRITE NEGATIVE (Negative); URINE PROTEIN (DIPSTICK) 2+ (Negative); URINE SPECIFIC GRAVITY 1.015 (1.005-1.035); URINE UROBILINOGEN 0.2 E.U./dl (0.2-1.0)
[2017-05-08 23:28] LABS: BACTERIA >30 Many /HPF (None Seen); CASTS None Seen /LPF (None Seen); MUCUS None Seen strn/LPF (None Seen); SQUAMOUS None Seen /LPF (0-3); URINE RBC None Seen /HPF (0-2); URINE WBC 0-5 Rare /HPF (0-5)
[2017-05-08 23:29] LABS: CRYSTALS None Seen /LPF (None Seen)
[2017-05-08] MEDS ORDERED: CYMBALTA60 MG PO (23:40)
[2017-05-08] MEDS ORDERED: ONDANSETRON HCL4 M2 PO (23:40)
[2017-05-08] MEDS ORDERED: PREDNISONE 20 M20 MG PO (23:40)
[2017-05-08] MEDS ORDERED: ATIVAN0.5 MG PO (23:42)
[2017-05-09 00:10] VITALS: BP 149/63
[2017-05-21] MEDS ORDERED: MS CONTIN 30 MG30 M1 PO (13:49)
[2017-05-21] MEDS ORDERED: NEURONTIN 300300 M1 PO (13:49)
[2017-05-21] MEDS ORDERED: MS CONTIN15 MG PO ×2 (13:49)
[2017-05-21] MEDS ORDERED: MS CONTIN30 MG PO (13:49)
[2017-05-21] MEDS ORDERED: FLEXERIL PO (13:59)
[2017-09-24] MEDS ORDERED: MS CONTIN15 MG PO ×2 (11:36)
[2017-09-24] MEDS ORDERED: NEURONTIN 300300 M1 PO (11:36)
[2017-09-24] MEDS ORDERED: MS CONTIN 30 MG30 M1 PO (11:36)
[2017-09-24] MEDS ORDERED: FLEXERIL PO (11:36)
[2017-09-24] MEDS ORDERED: MS CONTIN30 MG PO (11:36)
[2018-01-19] MEDS ORDERED: BELSOMRA20 MG PO (10:52)
[2018-01-19] MEDS ORDERED: BUSPIRONE HCL15 MG PO (10:56)
[2018-01-19] MEDS ORDERED: TRESIBA FL100 UNIT/1 SUBQ (10:57)
[2018-01-19] MEDS ORDERED: LINZESS290 MCG PO (10:58)
[2018-01-19] MEDS ORDERED: MS CONTIN15 MG PO ×3 (11:36→11:37)
[2018-01-19] MEDS ORDERED: NEURONTIN 300300 M1 PO (11:36)
== END 2017-05-09 00:05 | disposition home or self-care (01) ==
LOC: ER 20:44
PROVIDERS: Nurse Practitioner Family
DX: B34.9 Viral infection, unspecified (principal); F41.9 Anxiety disorder, unspecified; R82.71 Bacteriuria; Z88.8 Allergy status to other drugs, medicaments and biological substances

== ENCOUNTER → 2017-05-21 | Outpatient (CLI) | payer OTHER, BC ==
[~2017-05-21] VITALS: Ht 162.6 cm; Wt 74.9 kg
[~2017-05-21] MED LIST changes: +ATIVAN0.5 MG PO; +BELSOMRA20 MG PO; +BUSPIRONE HCL15 MG PO; +FLEXERIL PO; +LINZESS290 MCG PO; +ONDANSETRON HCL4 M2 PO; +PREDNISONE 20 M20 MG PO; +TRESIBA FL100 UNIT/1 SUBQ
--- NOTE | ~2017-05-21 | HPC ---
[facility] [place] [address] PAIN MANAGEMENT CONSULTATION Name: NORMAN KENNEDY Room #: REG RONNIE Wero#: [id number] Admission: 05/21/17 Attend Phys: Danny Manrique MD Discharge: Date of : 60 Report #: [id number] THIS REPORT FOR: //name// CC: Elan Manrique DATE OF SERVICE: 05/21/2017 SUBJECTIVE: Followup visit for chronic pain and spasticity related to multiple sclerosis and osteoarthritis. This is a followup for the patient who is seeing our pain clinic at routine intervals. She was last seen in our clinic on 02/03. She returns to the pain clinic today reporting a need for her ongoing medications provided for intractable pain. I provided her with morphine 30 mg at bedtime and 15 mg b.i.d. for a total of 60 MME gabapentin 300 mg t.i.d. and Flexeril 5 mg t.i.d. With these medications, she is able to function reasonably well. When I last saw her, she was doing well. She unfortunately developed a headache in March, was admitted to the hospital and found to have viral meningitis. She was treated in the hospital with fluids, antiviral agents and was able to be discharged. She is gradually regaining strength. Sleep has continued to be an issue and has been one of her problems all along. We have talked about different ways to try and assist with that both from medicinal and nonmedicinal standpoint. Medications were reviewed and reconciled. She is on time for medication through our clinic. She does have a history of osteoarthritis and muscular dystrophy. Pain is mostly in her right upper extremity and right lower extremity and left upper extremity as well. She has pain in her shoulders, knees and joints related to rheumatoid arthritis, which is also an issue. Her BMI is 28.3. She appears debilitated. VITAL SIGNS: Her blood pressure 127/68, heart rate is 82. Pain intensity is 6. She is a fall risk, having fallen several times in the last 3 months with her underlying muscular dystrophy and she uses a cane. She was given some precautions today. Her opioid use requires an opioid agreement, which has been signed and reviewed today. The opioid crisis discussed under the CDC guidelines. I informed her of morphine milligram equivalency and where that sits in the guideline. She has completed a risk assessment tool and is at low risk for addiction 0. She does not use tobacco or alcohol. Functional assessment tool was not utilized on this visit. IMPRESSION: 1. Muscular dystrophy, myotonic type. [address] [address] PAIN MANAGEMENT CONSULTATION Name: NORMAN KENNEDY Room #: REG [facility]#: [id number] Admission: 05/21/17 Attend Phys: Danny Manrique MD Discharge: Date of : 60 Report #: [id number] 2. Chronic low back pain with radiculopathy, improved since epidural injection in January. 3. History of depression. 4. Asthma. 5. Management of high risk medication. 6. Insulin-dependent diabetes. 7. Recent hospitalization for viral meningitis. PLAN: I renewed her medications, MS Contin, gabapentin and Flexeril under terms of written agreement. I will plan to see her back in the pain clinic in 3 months. <ELECTRONICALLY SIGNED> By: Danny Manrique MD 06/18/17 1640 1358 0342 Danny Manrique MD /nt
[2017-05-21 13:28] VITALS: BP 127/68
== END ==
LOC: PAIN 07:03
DX: M54.16 Radiculopathy, lumbar region (principal); G71.11 Myotonic muscular dystrophy; F32.9 Major depressive disorder, single episode, unspecified; J45.909 Unspecified asthma, uncomplicated; E11.9 Type 2 diabetes mellitus without complications; A87.9 Viral meningitis, unspecified; Z79.899 Other long term (current) drug therapy

== ENCOUNTER → 2017-09-24 | Outpatient (CLI) | payer OTHER, BC ==
[~2017-09-24] VITALS: Ht 162.6 cm; Wt 73.6 kg
[~2017-09-24] MED LIST changes: -BELSOMRA20 MG PO; -BUSPIRONE HCL15 MG PO; -LINZESS290 MCG PO; -TRESIBA FL100 UNIT/1 SUBQ
--- NOTE | ~2017-09-24 | HPC ---
[facility] [address] [address] PAIN MANAGEMENT CONSULTATION Name: NORMAN KENNEDY Room #: REG RONNIE [facility]ina#: [id number] Admission: 09/24/17 Attend Phys: Luis Diaz MD Discharge: Date of : 60 Report #: [id number] THIS REPORT FOR: //name// CC: Elan Diaz DATE OF SERVICE: 09/24/2017 FOLLOWUP COMPLAINT: Here for medication renewal. FOLLOWUP HISTORY: The patient is a 56-year-old female who has been followed in the pain clinic by Dr. Danny Manrique. The patient has a history of chronic pain with spasticity related to multiple sclerosis and osteoarthritis. She finds that her current medications are helpful. She rates her pain as 5/10 at this juncture. She is experiencing pain down into her legs and into her feet, described as constant, chronic aching, throbbing, sharp and burning. Notes that pain is exacerbated with activities such as walking and standing. It improves with use of rest and with her current medications. States that she is having no problem with her medications. She is able to speak clearly. Does not have any real problems with constipation or other untoward problems with her medications. States that her viral meningitis which was problematic in March has cleared up nicely. She does feel that she is having some difficulty sleeping. She may request a renewal of her sleeping aid. Overall, things are going reasonably well and she would like to continue with her medications. MEDICATIONS: LASIX. CURRENT MEDICATIONS: Flexeril 10 mg p.o. t.i.d. for spasms, morphine MS Contin 30 mg 1 tablet at bedtime, gabapentin 300 mg 1 tablet t.i.d., Famciclovir 500 mg t.i.d., Enablex 7.5 mg, baclofen 10 mg b.i.d., Nexium 40 mg, esterase 1 mg tablet daily, insulin 100 units/50 units subcu at bedtime, Lotensin 40 mg b.i.d., aspirin 81 mg, Bystolic 5 mg, Cymbalta 60 mg b.i.d., Symbicort 160/4.5 b.i.d., DHEA 25 at bedtime, Zetia 10 mg at bedtime, Singulair 10 mg, NovoLog mix 70/30, 50 units q.i.d., Norvasc 10 mg. PAIN CLINIC ASSESSMENT: 1. History of osteoarthritis, not applicable. History of rheumatoid arthritis, left upper extremity, right upper extremity. 2. Height 5 feet 4 inches, weight 162 pounds, BMI is 27.8. 3. Vital signs: Blood pressure 136/89, pulse 89, respiratory rate 16, room air saturation 95%. 4. Pain intensity 5/10. 5. Fall risk. The patient has fallen in the last 3 months. She does walk with use of a cane. 6. Blood thinner. The patient denies use of blood thinning medication. 7. History of hypertension. The patient is being treated for hypertension. [address] [address] PAIN MANAGEMENT CONSULTATION Name: NORMAN KENNEDY Room #: REG SAURABHJuan Conteh#: [id number] Admission: 09/24/17 Attend Phys: Luis Diaz MD Discharge: Date of : 60 Report #: [id number] 8. Opioid therapy greater than 6 weeks. The patient has signed a contract with the pain clinic that she gets her medication from only one source. 9. Risk assessment tool, low risk. 10. Functional assessment tool. 11. Recreational drug use. The patient denies use of recreational drugs. 12. Tobacco: The patient has never smoked cigarettes. 13. Alcohol: The patient denies use of alcoholic beverages. PHYSICAL EXAMINATION: GENERAL: The patient is a well-developed white female, appears her stated age. She is alert and oriented x 3. Affect is appropriate. Speech is fluent. HEENT: Normocephalic, atraumatic. Extraocular eye muscles intact. Sclerae nonicteric. Hearing within normal limits. Mucous membranes are moist. HEART: Regular rate. ABDOMEN: Nontender. MUSCULOSKELETAL: Upper and lower extremity, the patient has a history of spasticity secondary to multiple sclerosis, has pain in the right upper extremity and right lower extremity and left lower extremity as well. Pain in her shoulders, knees joints related to rheumatoid arthritis. RECOMMENDATIONS: 1. We discussed treatment options with the patient. We will continue with her current medical management. IMPRESSION: 1. Muscular dystrophy. Monotonic type. 2. Chronic low back pain with radiculopathy, improved with epidural steroid injection by history. 3. History of depression. 4. History of asthma. 5. Management of pain with high risk medications. 6. Insulin-dependent diabetes. 7. Past history of viral meningitis -- stable. 8. Insomnia. RECOMMENDATIONS: We discussed treatment options with the patient. We will continue with her current medical regimen of MS Contin, gabapentin, Flexeril. She will speak with Dr. Manrique regarding the possibility of using a medication to promote sleep at night. We would like to thank you for letting us participate in her care. We hope that she continues to improve. A script for all of her medications have been written and provided. <ELECTRONICALLY SIGNED> By: Luis Diaz MD 10/01/17 1326 1516 190 MD joe Dalal
[2017-09-24 10:58] VITALS: BP 136/89
== END ==
LOC: PAIN 06:45
DX: M54.16 Radiculopathy, lumbar region (principal); E11.9 Type 2 diabetes mellitus without complications; G71.0 Muscular dystrophy; G89.29 Other chronic pain; M54.5 Low back pain; G47.00 Insomnia, unspecified; Z79.899 Other long term (current) drug therapy

== ENCOUNTER → 2018-01-19 | Outpatient (CLI) | payer OTHER, BC ==
[~2018-01-19] VITALS: Ht 162.6 cm; Wt 74.8 kg
[~2018-01-19] MED LIST changes: +BELSOMRA20 MG PO; +BUSPIRONE HCL15 MG PO; +LINZESS290 MCG PO; +TRESIBA FL100 UNIT/1 SUBQ
--- NOTE | ~2018-01-19 | HPC ---
[facility] [address] [place] [address] PAIN MANAGEMENT CONSULTATION Name: NORMAN KENNEDY Room #: REG Juan Conteh#: [id number] Admission: 01/19/18 Attend Phys: Danny Manrique MD Discharge: Date of : 60 Report #: [id number] THIS REPORT FOR: //name// CC: Elan Manrique DATE OF SERVICE: 01/19/2018 REASON FOR CONSULTATION: Followup visit for management of high-risk medications and the treatment of chronic intractable pain. HISTORY OF PRESENT ILLNESS: I am seeing the patient today with her . She has been a longstanding patient of our clinic. She suffers from osteoarthritis, muscular dystrophy, diabetes, and general debility. She is in a wheelchair today. She has a history of depression and asthma. She struggles with insomnia. She is on a fairly high dose of morphine at 15 mg morning and noon and 30 mg at bedtime for a total of 60 MME. She also is on gabapentin 300 mg t.i.d. She feels that the gabapentin is helpful. Flexeril is available. It makes her sleepy. She uses all these medications with some constipation and is on Linzess now to help with that. PQRS review shows that she has a history of osteoarthritis with pain in the upper extremities and lower. Her BMI is 28.3. She is a fall risk and needs help walking and standing. She has fallen in the last 3 months. She has a pain intensity of 7 to 8/10. She is on no blood thinners. She has signed an opioid agreement with our office and has completed an opioid risk tool, which shows that she is at low risk for addiction. She does not use tobacco or alcohol. She has a supportive named Pete who is with her today on her visit. PHYSICAL EXAMINATION: VITAL SIGNS: Blood pressure 134/68, heart rate 82. Localized tenderness today across the low back and some diffuse myofascial discomfort as well. IMPRESSION: 1. Chronic low back pain with radiculopathy. 2. Osteoarthritis. 3. Myotonic muscular dystrophy. 4. Asthma. 5. History of depression. 6. Insulin-dependent diabetes. 7. Management of high risk medications. RECOMMENDATIONS: I have talked to her today about CDC guidelines and her current morphine milligram equivalency of 60. I would like to reduce her [facility] [address] [place] [address] PAIN MANAGEMENT CONSULTATION Name: NORMAN KENNEDY Room #: REG RONNIE De Leon.#: [id number] Admission: 01/19/18 Attend Phys: Danny Manrique MD Discharge: Date of : 60 Report #: [id number] slightly to 45 MME. In so doing, I am going to increase her nonopioid gabapentin, which she feels is helpful at night to 600 at bedtime. Hopefully, this will make up for the loss of the 15 mg, which we will take away at bedtime. I have given her 3 months of prescriptions for MS Contin 15 mg t.i.d. or again 45 morphine milligram equivalents. Importance of safeguarding all medications was discussed. We discussed side effects as well. Followup visit planned in 90 days. By: 1719 0635 Danny Manrique MD /nt
[2018-01-19 10:43] VITALS: BP 134/68
== END ==
LOC: PAIN 01-08 12:06
DX: G89.29 Other chronic pain (principal); M54.16 Radiculopathy, lumbar region; M19.90 Unspecified osteoarthritis, unspecified site; G71.11 Myotonic muscular dystrophy; J45.909 Unspecified asthma, uncomplicated; F32.9 Major depressive disorder, single episode, unspecified; E11.9 Type 2 diabetes mellitus without complications; Z79.899 Other long term (current) drug therapy

== ENCOUNTER → 2018-02-09 | Outpatient (CLI) | payer OTHER, BC ==
[~2018-02-09] VITALS: Ht 162.6 cm; Wt 69.9 kg
--- NOTE | ~2018-02-09 | HPC ---
[facility] [address] [place] [address] PAIN MANAGEMENT CONSULTATION Name: NORMAN KENNEDY Room #: REG RONNIE Wero#: [id number] Admission: 02/09/18 Attend Phys: Danny Manrique MD Discharge: Date of : 60 Report #: [id number] THIS REPORT FOR: //name// CC: Elan Manrique DATE OF SERVICE: 02/09/2018 Followup visit for chronic back pain with radiculopathy, post-laminectomy syndrome and osteoarthritis. The patient suffers with myotonic muscular dystrophy. The patient returns to pain clinic today with her . She is here today requesting an epidural injection. It has been over a year since she had her last injection. Both remember the injection is helpful providing substantial relief for a period extending into months. She is on polypharmacy regimen for her multiple disorders. Included in that are 6 centrally acting medications including: Opioid morphine, which I provide for her as well as gabapentin. She has also taken Flexeril for periods of severe spasticity. She is on Cymbalta, the antidepressant, buspirone for anxiety and has recently been started on Belsomra for sleep. These are 6 centrally acting medications. We reviewed the concerns of polypharmacy and the risks of multiple sedating side effects. She has fallen in the last 3 months. She has some dizziness. See below a discussion on adjusting these medications. Unfortunately, they are provided by multiple providers. Pain is mostly in her low back, but it radiates in the L3-L4 distribution through the right leg, at a fairly classic distribution drawn as a dermatome across her leg. She has no significant focal weakness, but generalized weakness related to a monotonic dystrophy. Continuation of her PQRS noted that she does not smoke nor use alcohol. She has low risk for addiction by the opioid risk tool and has signed an opioid agreement, follows carefully to that agreement. Her primary care physician provides some medication for hypertension. Her weight is stable at 28.3 BMI. She has diffuse degenerative osteoarthritis involving upper and lower extremities. Weakness is noted generally throughout the lower and upper extremities from myotonic muscular dystrophy. Comorbidities include asthma, depression, insulin-dependent diabetes. PHYSICAL EXAMINATION: She is pleasant. Affect a bit flat and depressed. Blood pressure is 134/68, heart rate 82, BMI 28.3. She is in a wheelchair. She can move from sitting to standing position. Gait is very slow, and she has generalized weakness in her gait. Straight leg raising bilaterally reproduces [facility] [address] [place] [address] PAIN MANAGEMENT CONSULTATION Name: NORMAN KENNEDY [facility] [id number] Admission: 02/09/18 Attend Phys: Danny Manrique MD Discharge: Date of : 60 Report #: [id number] pain, but primarily in the right L3-L4 distribution. She has tenderness across the scar in her low back from previous laminectomy. Mild spasticity is noted. This seems to be controlled. IMPRESSION: 1. Chronic low back pain with radiculopathy, L3-L4 on the right. Post-laminectomy syndrome. 2. Myotonic muscular dystrophy. 3. Osteoarthritis. 4. Asthma. 5. Insulin-dependent diabetes. 6. Asthma. 7. Management of high risk medications under terms of written opioid agreement. PLAN: She does not need medication refills today. In fact, we discussed more the idea of possibly reducing some of her side effect causing medications. She will try to continue to taper to the lowest effective dose of both gabapentin and morphine. We have reduced her morphine dose over the course of the last year, and she is now at a dose of 30 morphine milligram equivalents. PROCEDURE: Lumbar epidural injection L3-L4 under fluoroscopic guidance. She was taken to fluoroscopic suite, placed prone, skin prepped with ChloraPrep. Skin anesthetized over L3-L4 to the right of midline. A 20-gauge Tuohy epidural needle advanced first attempt in the epidural space using loss of resistance technique. There was no blood or CSF aspirated. 1 mL of Omnipaque was injected. Good spread of dye was observed, followed by 3 mL of 0.5% lidocaine mixed with 80 mg triamcinolone. She tolerated the procedure well and was observed for 45 minutes and discharged. Follow up as needed. By: [id number] Danny Manrique MD /nt
[2018-02-09 09:02] VITALS: BP 135/69
== END | disposition home or self-care (01) ==
LOC: PAIN 07:11
DX: M54.16 Radiculopathy, lumbar region (principal); G89.29 Other chronic pain; M96.1 Postlaminectomy syndrome, not elsewhere classified; G71.11 Myotonic muscular dystrophy; M19.90 Unspecified osteoarthritis, unspecified site; J45.909 Unspecified asthma, uncomplicated; E11.9 Type 2 diabetes mellitus without complications; F32.9 Major depressive disorder, single episode, unspecified; Z79.4 Long term (current) use of insulin; Z98.890 Other specified postprocedural states; Z88.8 Allergy status to other drugs, medicaments and biological substances; Z79.82 Long term (current) use of aspirin; Z79.899 Other long term (current) drug therapy

== ENCOUNTER → 2018-06-15 | Outpatient (CLI) | payer OTHER ==
[~2018-06-15] VITALS: Ht 162.6 cm; Wt 73.0 kg
[~2018-06-15] MED LIST changes: +ESZOPICLONE2 MG PO
[2018-06-15 10:51] VITALS: BP 129/73
--- NOTE | 2018-06-15 10:58 | NUR ---
Pain Clinic Assessment: 1. History of Osteoarthritis: Not Applicable History of Rheumatoid Arthritis: Left Upper Extremity Right Lower Extremity Right Upper Extremity 2. Height: 5 ft. 4 in. 162.6 cm. Weight: 161.0 lb. oz. 73.029 kg. Patient's BMI: 27.6 3. Vital Signs: BP: 129/73 Pulse: 83 Resp: 16 Temp: 02 Sat: 98 ECG Mon: 4. Pain Intensity: 7 5. Fall Risk: Dizziness: Y Needs help standing or walking: Y Fallen in the last 3 months: Y Fall risk comments: fell but no dr visit-no injury 6. Patient on Blood Thinner: None 7. History of Hypertension: Y 8. Opioid Therapy greater than 6 weeks: Y Opiate Contract Signed: 10/11/15 9. Risk Assessment Tool Provided: 0-LOW RISK 10. Functional Assessment Tool: 11. Recreational Drug Use: Never Drug Type: Tobacco Use: Never Smoker Tobacco Type: Amount or Packs/day: How Many Years: Alcohol Use: No Frequency: Quant:
--- NOTE | 2018-06-16 08:16 | HPC ---
[facility] [place] [address] PAIN MANAGEMENT CONSULTATION Name: BRENTNORMANWeston CAMPO Room #: REG Juan Conteh#: [id number] Admission: 06/15/18 ������������������ Attend Phys: Radha Pruett Discharge: ������������������ Date of : 60 Report #: [id number] THIS REPORT FOR: //name// CC: Radha Pruett Elan Pressley DATE OF SERVICE: 06/15/2018 CHIEF COMPLAINT: Chronic back pain with radiculopathy, post-laminectomy syndrome. HISTORY OF PRESENT ILLNESS: The patient returns to the pain clinic today with her . She is here for medication refill and requesting an appointment for epidural injection. She complains of low back pain that radiates down her right leg, though she does tell me at times it is bilateral legs all the way to her toes. She complains of burning, weakness and pressure, 8/10 pain score today. She tells me this is an average pain score. Her pain is worse when she walks. She is in a wheelchair today that her has brought her in. Her medications and rest are helpful in relieving or decreasing some of her pain. She tells me that she had an epidural in January that helped for about 6 weeks. She was at least 70% better that has slowly worn off. She takes her MS Contin 2-3 times a day, which we had decreased in January as well. The patient tells me that she is going out of town in the middle of June and would like another epidural prior to her vacation. ALLERGIES: LASIX. CURRENT LIST OF MEDICATIONS: Lunesta 2 mg at bedtime, MS Contin 15 mg t.i.d., gabapentin 300 mg t.i.d., Linzess 290 mg daily, insulin sliding scale, insulin 50 units at bedtime, buspirone 15 mg b.i.d., Belsomra 20 mg at bedtime, Flexeril as needed p.r.n., baclofen 10 mg b.i.d. one in the morning and two at night, Nexium 40 mg a day, Estrace 1 mg daily, aspirin 81 mg daily, Bystolic 5 mg daily, Cymbalta 60 mg b.i.d., Symbicort twice a day, DHEA 25 mg at bedtime, Zetia 10 mg at bedtime, Singulair 10 mg daily, amlodipine 10 mg daily. PQRS: 1. She denies osteoarthritis, but does have rheumatoid arthritis in her upper and lower extremities. 2. Height is 5 feet 4 inches, weight is 161. BMI is 27. 3. Vital signs: Blood pressure 129/73, pulse is 83, respirations 16, oxygen sat 98. 4. Pain score 7/10. 5. Fall risk. She denies dizziness. Does need help walking occasionally and she fell within the last 3 months with no injury. 6. The patient is not on any blood thinners. She does [place] [address] PAIN MANAGEMENT CONSULTATION Name: BRENT,NORMAN ALBER Room #: REG RONNIE Conteh#: [id number] Admission: 06/15/18 ������������������ Attend Phys: Radha Pruett Discharge: ������������������ Date of : 60 Report #: [id number] 7. Opioid therapy is greater than 6 weeks; therefore, an opioid signed contract is on the chart. 8. Her risk assessment tool is low. Her functional assessment is 39/70. 9. Recreational drug use, she denies. She is not a smoker, does not drink alcohol. We did check the prescription monitoring system. The patient is filling her narcotics from Dr. Danny Manrique. The patient tells me she does safeguard her medications. We will check a drug screen on her next visit for medications. PHYSICAL EXAMINATION: GENERAL: This is alert and orientated 57-year-old female. Her affect is slightly flat. She is well developed and well nourished. HEENT: Normocephalic, atraumatic. Extraocular eye muscles are intact. Mucous membranes are moist. MUSCULOSKELETAL: She is in a wheelchair today, but she can move from sitting to standing position. Her gait is slow and antalgic. Complains of pain across the lower part of her back that radiates into bilateral legs to her toes. Right leg pain is worse than the left, primarily the right L3-L4 distribution. IMPRESSION: 1. Chronic low back pain with radiculopathy L3-L4 on the right. 2. Post-laminectomy syndrome. 3. Myotonic muscular dystrophy. 4. Osteoarthritis. 5. Asthma. 6. Insulin-dependent diabetic. 7. Management of high-risk medications under terms of written opioid agreement. We reviewed the fact that opiate medications are being used to provide analgesia adequate to support activities of daily living, not attempting to achieve a specific pain score on the 0-10 Visual Analog Scale. The current opiate medications are providing sufficient analgesia to allow the patient to participate in activities of daily living. The patient is not exhibiting any aberrant behavior suggestive of drug diversion. The patient is not having any adverse reactions to medications. The patient is not suffering from daytime somnolence or mental acuity changes. The patient is managing opiate-induced constipation with appropriate [id number] agents and dietary considerations. The patient was counseled on concern for caution with operating a motor vehicle while using opiate medications. A physical exam was performed and the patient's functional status was evaluated. All patients with back pain were advised against the bed rest greater than 4 days and were advised to return to normal activities. Pain score assessment was noted and the treatment plan was reviewed with the patient. All current medications, both prescribed and OTC were reviewed and reconciled on the [facility] [address] [place] [address] PAIN MANAGEMENT CONSULTATION Name: BRENT,NORMAN ALBER [facility] #: [facility] [id number] Admission: 06/15/18 ������������������ Attend Phys: Radha Pruett Discharge: ������������������ Date of : 60 Report #: [id number] electronic medical record. Tobacco screening was accomplished and smoking cessation was advised when indicated. BMI was noted and diet/exercise modification was recommended for all patients following outside normal parameters. I reviewed with the patient today their responsibilities to safeguard prescription medications, reviewed their responsibility to utilize medications only as prescribed by the physician. They are to seek and receive pain medications only from 1 physician group ( [facility]). They are to use 1 pharmacy and keep the clinic informed if they change pharmacies. Their responsibilities include making followup visits in a timely fashion and to avoid abrupt discontinuation of medication usage. Their responsibilities further include bringing their medications (bottles from the pharmacy with residual pills) to the visit for possible confirmation of pill counts and the patient understands it is their responsibility to submit to random drug screens to ensure both that the medications prescribed are present, and that no other controlled substances are present. All prescriptions provided today were generated electronically. PLAN: 1. We discussed treatment options today. The patient tells me that she is wondering if she could go back on her MS Contin 15 mg b.i.d. with 30 at bedtime. She tells me that she has been hurting a little bit more recently, especially at night, not being able to sleep well. I discussed the CDC guidelines. The patient is now at 45 MME per day and according to that the patient fills each month and medication has been lasting her 5-6 weeks. I explained that it has only been 3 months and hence it takes a while for her body to adjust to this level. At this point, Dr. Manrique entered the room and reinforced what I was telling her. We will keep her at the current level of 15 mg of morphine 3 times a day, #90 and scripts given today for an 8-week. 2. Scripts also given for Flexeril 10 mg up to 3 times a day as needed, #30 with 2 additional refills. The patient takes these very sparingly as a muscle relaxant when she needs them. The patient tells me she does not need gabapentin refills today. 3. We will make an appointment for the patient with Dr. Manrique in about 2 weeks prior to going out of town for a lumbar epidural steroid injection. She has finally found these very beneficial in the past to helping with her back and radicular pain giving her at least 70% relief for about 6 weeks. Appointment will be made prior to her vacation. 4. The patient was seen with Dr. Manrique and in collaboration for this appointment. ��������������������������������������������� <ELECTRONICALLY SIGNED> ���������������������������������������� By: Radha Pruett ��������������������������������������������� 06/16/18 0816 [id number] Radha Pruett /wyatt
== END ==
LOC: PAIN 07:48
DX: M54.16 Radiculopathy, lumbar region (principal); M19.90 Unspecified osteoarthritis, unspecified site; M96.1 Postlaminectomy syndrome, not elsewhere classified; E11.9 Type 2 diabetes mellitus without complications; J45.909 Unspecified asthma, uncomplicated; G71.11 Myotonic muscular dystrophy; Z79.4 Long term (current) use of insulin; Z79.899 Other long term (current) drug therapy; Z79.891 Long term (current) use of opiate analgesic

== ENCOUNTER → 2018-06-25 | Outpatient (CLI) | payer OTHER ==
[~2018-06-25] VITALS: Ht 162.6 cm; Wt 73.7 kg
--- NOTE | ~2018-06-25 | HPC ---
[facility] [place] [address] PAIN MANAGEMENT CONSULTATION Name: NORMAN KENNEDY [facility] [id number] Admission: 06/25/18 ������������������ Attend Phys: Danny Manrique MD Discharge: ������������������ Date of : 60 Report #: [id number] THIS REPORT FOR: //name// CC: Elan Manrique DATE OF SERVICE: 06/25/2018 Followup visit for low back pain with radiculopathy and chronic intractable pain post-laminectomy syndrome. The patient returns to pain clinic today for an epidural injection. She has responded nicely to these injections and her last injection was over 4-1/2 months ago. She is also on medication, which we provide for her under terms of written opioid agreement that was provided a month ago. She is back today for an injection. There have been a few changes in her physical exam since last visit. She continues to complain of crossover pain in her low back. She has pain with standing and ambulating. She has muscular dystrophy of a myotonic type, so her gait is spastic. PHYSICAL EXAMINATION: VITAL SIGNS: Blood pressure 156/80, heart rate 87, respirations 16. MUSCULOSKELETAL: She moves independently, but slowly. Weakness noted in the lower extremities. She has pain with forward flexion and extension. Tenderness across her scar and above in the low back. Deep tendon reflexes are diminished bilaterally in lower extremities. Straight leg raising is bilaterally positive. She has multiple tender joints including shoulders, knees and hips. This is related to her rheumatoid arthritis. IMPRESSION: 1. Chronic low back pain with radiculopathy post-laminectomy syndrome, failed back. 2. Management of oral medications. She is currently on medications and does not need refills today. PROCEDURE: For today is lumbar epidural steroid injection under fluoroscopic guidance. DESCRIPTION OF PROCEDURE: She was taken to fluoroscopic suite for treatment. She was placed prone, skin was prepped with ChloraPrep. Skin was anesthetized over the L4-L5 interspace. A 20-gauge Tuohy epidural needle was advanced into the epidural space with loss of resistance technique. There was no blood or CSF [address] [address] PAIN MANAGEMENT CONSULTATION Name: BRENTNORMAN ADKINS ALBER Room #: REG [facility] Wero#: [id number] Admission: 06/25/18 ������������������ Attend Phys: Danny Manrique MD Discharge: ������������������ Date of : 60 Report #: [id number] aspirated. 1 mL of Omnipaque injected. Good spread of dye observed into the epidural space, was followed by 3 mL of 0.5% lidocaine mixed with 80 mg triamcinolone. She tolerated the procedure well and was observed for 45 minutes and discharged. Followup visit planned in the pain clinic in 3 months. ��������������������������������������������� ���������������������������������������� By: ��������������������������������������������� [id number] [id number] Danny Manrique MD /nt
[2018-06-25 14:04] VITALS: BP 156/80
--- NOTE | 2018-06-25 14:10 | NUR ---
Pain Clinic Assessment: 1. History of Osteoarthritis: Not Applicable History of Rheumatoid Arthritis: Left Upper Extremity Right Lower Extremity Right Upper Extremity 2. Height: 5 ft. 4 in. 162.6 cm. Weight: 162.4 lb. oz. 73.664 kg. Patient's BMI: 27.9 3. Vital Signs: BP: 156/80 Pulse: 87 Resp: 16 Temp: 02 Sat: 96 ECG Mon: 4. Pain Intensity: 6 5. Fall Risk: Dizziness: Y Needs help standing or walking: Y Fallen in the last 3 months: Y Fall risk comments: fell but no dr visit-no injury 6. Patient on Blood Thinner: None 7. History of Hypertension: Y 8. Opioid Therapy greater than 6 weeks: Y Opiate Contract Signed: 10/11/15 9. Risk Assessment Tool Provided: 0-LOW RISK 10. Functional Assessment Tool: 11. Recreational Drug Use: Never Drug Type: Tobacco Use: Never Smoker Tobacco Type: Amount or Packs/day: How Many Years: Alcohol Use: No Frequency: Quant:
== END | disposition home or self-care (01) ==
LOC: PAIN 07:02
DX: M54.16 Radiculopathy, lumbar region (principal); G89.29 Other chronic pain; M96.1 Postlaminectomy syndrome, not elsewhere classified; E11.9 Type 2 diabetes mellitus without complications; F41.9 Anxiety disorder, unspecified; Z88.8 Allergy status to other drugs, medicaments and biological substances; Z79.4 Long term (current) use of insulin; Z79.82 Long term (current) use of aspirin; Z79.899 Other long term (current) drug therapy

== ENCOUNTER → 2019-03-22 | Outpatient (CLI) | payer OTHER ==
[~2019-03-22] VITALS: Ht 162.6 cm; Wt 73.1 kg
[~2019-03-22] MED LIST changes: +LUNESTA3 MG PO; +NEURONTIN 300M300 M2 PO
[2019-03-22 09:43] VITALS: BP 138/65
--- NOTE | 2019-03-22 10:03 | NUR ---
Pain Clinic Assessment: 1. History of Osteoarthritis: Not Applicable History of Rheumatoid Arthritis: Left Upper Extremity Right Lower Extremity Right Upper Extremity 2. Height: 5 ft. 4 in. 162.6 cm. Weight: 161.2 lb. oz. 73.120 kg. Patient's BMI: 27.7 3. Vital Signs: BP: 138/65 Pulse: 72 Resp: 14 Temp: 02 Sat: 97 ECG Mon: 4. Pain Intensity: 7 5. Fall Risk: Dizziness: Y Needs help standing or walking: Y Fallen in the last 3 months: Y Fall risk comments: fell but no dr visit-no injury 6. Patient on Blood Thinner: None 7. History of Hypertension: Y 8. Opioid Therapy greater than 6 weeks: Y Opiate Contract Signed: 10/11/15 9. Risk Assessment Tool Provided: LOW RISK 04/23 10. Functional Assessment Tool: 11. Recreational Drug Use: Never Drug Type: Tobacco Use: Never Smoker Tobacco Type: Amount or Packs/day: How Many Years: Alcohol Use: No Frequency: Quant:
--- NOTE | 2019-03-22 13:11 | HPC ---
[facility] [place] [address] PAIN MANAGEMENT CONSULTATION Name: NORMAN KENNEDY Room #: REG [facility] Wero#: [id number] Admission: 03/22/19 Attend Phys: Radha Pruett Discharge: Date of : 60 Report #: [id number] THIS REPORT FOR: //name// CC: Radha Manrique MD DATE OF SERVICE: 03/22/2019 CHIEF COMPLAINT: Low back pain with radiculopathy and chronic intractable pain, post-laminectomy syndrome. HISTORY OF PRESENT ILLNESS: This is a very pleasant 58-year-old female who returns to the pain clinic today. We had last seen her in June for an epidural steroid injection, which she reported that she did have good relief. She was doing quite well until she fell in August and broke her tibia-fibula of her right leg. This required surgery for a plate and screws. Evidently, there were problems with the healing. They had to return to surgery and put external fixator on her right leg, which then became infected. She reports that she had to be at [facility] for a significant amount of time on IV antibiotics. She reports that she is no longer on antibiotics and is doing quite well, trying to relearn how to walk, using a walker. She does have AFO brace on both legs. She is reporting a pain score today of 7/10. This is a average pain score per her report. Her is with her today. He did report that they had received some hydrocodone initially through the postop period that she has been off of that medicine for about a month. She remains on her MS Contin 15 mg 3 times a day and would like refills of that today. She denies constipation that is not controlled or daytime somelance. The patient is also requesting a refill of her gabapentin and wondering about a slight increase. She feels that she is having more neuropathic pain than she had in the past. She is a diabetic and has had back surgery that also causes neuropathy. She reports nighttime is the worst problem with her neuropathy currently. Her pain is worse with walking, but the medications overall are very beneficial as well as sitting. ALLERGIES: LASIX. CURRENT LIST OF MEDICATIONS: Lunesta 3 mg, MS Contin 15 mg t.i.d.; gabapentin 300 mg tablets, 300, 300, 600; insulin, Enablex, baclofen, Nexium, Estrace, aspirin, Bystolic, Cymbalta, Symbicort, DHEA, Zetia, Singulair, NovoLog sliding scale and Norvasc. PQRS: 1. She denies osteoarthritis, but has rheumatoid arthritis in her upper and lower extremities. [address] [address] PAIN MANAGEMENT CONSULTATION Name: BRENTNORMAN ALBER Room #: REG [facility] Wero#: [id number] Admission: 03/22/19 Attend Phys: Radha Pruett Discharge: Date of : 60 Report #: [id number] 2. Height is 5 feet 4 inches, weight is 161, BMI is 27. 3. Vital signs: 138/65, pulse is 72, respirations 14, oxygen sat is 97. 4. Pain score is 7/10. 5. Complains of dizziness, does need help walking. She is in a wheelchair today and also uses a walker and has fallen in the last 3 months. 6. She is not on any blood thinners, but does take hypertension medicine. 7. Opiate therapy is greater than 6 weeks; therefore, an opioid signed contract is on the chart. Risk assessment tool is low. Functional assessment is 51/70. 8. Recreational drug use, she denies. She is not a smoker and does not drink alcohol. According to the prescription monitoring system, the patient has failed numerous medications from other physicians since we saw her last. These physicians were her rehabilitation physicians as well as her primary doctor. She does report she will no longer be filling meds from these physicians and back to using Dr. Manrique only post-injury. Her current morphine milliequivalent is 45 morphine MMEs. According to the CDC guidelines, on her MS Contin 15 mg 3 times a day. PHYSICAL EXAMINATION: GENERAL: This is alert and orientated 58-year-old female who appears her stated age. Her affect is flat. HEENT: Normocephalic, atraumatic. Extraocular eye muscles are intact. Mucous membranes are moist. MUSCULOSKELETAL: She is in a wheelchair today. She has AFO braces on her bilateral legs. Well-healed scar on her left lower extremity. Weakness is noted bilaterally, deconditioned. Lower extremity strength judged to be 4/5. Straight leg raising is positive bilaterally. She has multiple tender joints including shoulders, knees and hips. IMPRESSION: 1. Chronic low back pain with radiculopathy at the L3-L4 distribution. 2. Post-laminectomy syndrome. 3. Myotonic muscular dystrophy. 4. Osteoarthritis. 5. Insulin-dependent diabetic. 6. Recent fracture of tibia-fibula with infection, in healing stages. 7. Management of high risk medications under terms of written opioid agreement. 8. Severe peripheal neuropathy. We reviewed the fact that opiate medications are being used to provide analgesia adequate to support activities of daily living, not attempting to achieve a specific pain score on the 0-10 Visual Analog Scale. The current opiate medications are providing sufficient analgesia to allow the patient to participate in activities of daily living. The patient is not exhibiting any aberrant behavior suggestive of drug diversion. The patient is not having any adverse reactions to medications. The patient is not suffering from daytime [facility] [address] [place] [address] PAIN MANAGEMENT CONSULTATION Name: NORMAN KENNEDY Room #: REG [facility].#: [id number] Admission: 03/22/19 Attend Phys: Radha Pruett Discharge: Date of : 60 Report #: [id number] somnolence or mental acuity changes. The patient is managing opiate-induced constipation with appropriate ciyg-ysm-pxjjrzl agents and dietary considerations. The patient was counseled on concern for caution with operating a motor vehicle while using opiate medications. I reviewed with the patient today their responsibilities to safeguard prescription medications, reviewed their responsibility to utilize medications only as prescribed by the physician. They are to seek and receive pain medications only from 1 physician group ( [facility]). They are to use 1 pharmacy and keep the clinic informed if they change pharmacies. Their responsibilities include making followup visits in a timely fashion and to avoid abrupt discontinuation of medication usage. Their responsibilities further include bringing their medications (bottles from the pharmacy with residual pills) to the visit for possible confirmation of pill counts and the patient understands it is their responsibility to submit to random drug screens to ensure both that the medications prescribed are present, and that no other controlled substances are present. All prescriptions provided today were generated electronically. PLAN: 1. We discussed treatment options with that patient today. The patient is back on her MS Contin 15 mg 3 tablets a day, has weaned off short-acting since her recent fall and surgeries, would like refills of that medication today. We will e-scribe 3 months of MS Contin 15 mg #[address] Danny Manriqeu who did see her as well today. This is 45 mme according to the CDC guidelines. 2. We discussed increasing her gabapentin 300 mg in the morning, 600 midday, 600 at night. If the patient finds it more beneficial to take 300 in the middle of the night, she may do that instead of midday. We are enabling her 5 tablets a day, script given for 450 tablets of 300 mg. This is a 3-month supply with a refill that the family will mail off to their pharmacy. 3. We took the liberty of writing a prescription for physical therapy to help with strengthening of her upper and lower extremities since she is deconditioned from her recent surgeries and hospitalizations. The patient is using a walker, but finds this difficulty due to her debilitated state since her surgeries. 4. The patient is seen in collaboration with Dr. Danny Manrique who did see the patient today. The patient will return in 3 months. <ELECTRONICALLY SIGNED> By: Radha Pruett 03/22/19 1311 [id number] Radha Pruett /nt
== END ==
LOC: PAIN 06:54
DX: S82.201D Unspecified fracture of shaft of right tibia, subsequent encounter for closed fracture with routine healing (principal); S82.401D Unspecified fracture of shaft of right fibula, subsequent encounter for closed fracture with routine healing; M54.16 Radiculopathy, lumbar region; M96.1 Postlaminectomy syndrome, not elsewhere classified; G71.11 Myotonic muscular dystrophy; M19.90 Unspecified osteoarthritis, unspecified site; E11.9 Type 2 diabetes mellitus without complications; G62.9 Polyneuropathy, unspecified; Z88.2 Allergy status to sulfonamides; Z79.82 Long term (current) use of aspirin; Z79.4 Long term (current) use of insulin; Z79.899 Other long term (current) drug therapy; W19.XXXD Unspecified fall, subsequent encounter

== ENCOUNTER → 2020-01-03 | Outpatient (CLI) | payer OTHER ==
[~2020-01-03] VITALS: Ht 162.6 cm; Wt 73.0 kg
[~2020-01-03] MED LIST changes: +AMBIEN5 MG PO; +FUROSEMIDE 40 M40 MG PO; +HYDROCODON-ACE1 EAC5 PO; +JARDIANCE10 MG PO; +LIPITOR 20 MG T20 M1 PO; +LIPITOR40 MG PO; +NORCO 10-325 T1 EACH PO; +POTASSIUM20 PO; +STOOL SOFTENER1 EAC2 PO
--- NOTE | ~2020-01-03 | HPC ---
[facility] [place] [address] PAIN MANAGEMENT CONSULTATION Name: NORMAN KENNEDY Room #: REG [facility] Moises.#: [id number] Admission: 01/03/20 Attend Phys: Danny Manrique MD Discharge: Date of : 60 Report #: [id number] THIS REPORT FOR: cc: Elan Pressley MD, FAAFP, FACEP, Douglas MD FAAFP FACEP Morgan, Richard L. MD ~ CC: Elan Manrique DATE OF SERVICE: 01/03/2020 Followup visit for chronic pain. It has been quite some time since I last saw the patient who goes by [facility]. She is here today for review of medication options for treatment of chronic pain. She has had a very rough 6 months. I last saw her on 03/22/2019. She sustained in a wound on her left foot, which eventually turned into osteomyelitis and she had to have a resection of her calcaneus. This occurred in June. She has had several hospitalizations since 03/2019. She was so sick in April and that they felt that she might have had COVID, although it had not reached the [employer] by that time. She recovered just short of ventilation, but was on BiPAP. She has since that time been convalescing and slowly recovering. I had provided her with three prescriptions for morphine, which we have used to provide relief dating back 5 years or more. She has reduced her daily morphine equivalents, but is found that she can get by on a bit less and would like to continue that. Pain today is mostly in the foot, but she also complains of her usual pain. She has diffuse pain related to a history of rheumatoid arthritis. Complains of pain in left and right shoulders as well as in her lower extremities. She also has had a failed back issue, status post laminectomy with radiculopathy. Of course, her underlying problem is myotonic muscular dystrophy, which triggers much of her ongoing pain. PHYSICAL EXAMINATION: VITAL SIGNS: Her blood pressure is 128/65, heart rate 83, respirations 16, O2 sat 100, BMI is 27.6. GENERAL: She is in a wheelchair. Pain intensity is 4. She has a soft boot on her left foot. She is unable to stand without assistance. CHEST: Clear. CARDIAC: Rhythm is regular. SKIN: Scar is tender across her low back. MUSCULOSKELETAL: Straight leg raising discomfort is noted bilaterally, but may not be radicular, but more muscular in nature. [facility] [address] [place] [address] PAIN MANAGEMENT CONSULTATION Name: NORMAN KENNEDY Room #: REG [facility]#: [id number] Admission: 01/03/20 Attend Phys: Danny Manrique MD Discharge: Date of : 60 Report #: [id number] IMPRESSION: 1. Chronic intractable pain with multiple pain generators. 2. Myotonic muscular dystrophy. 3. Rheumatoid arthritis. 4. Asthma. 5. Recent osteomyelitis requiring surgical resection of the calcaneus on the left with slow recovery. 6. Management of opioid medications for assistance in chronic intractable pain. PLAN: She has reduced her MME from 45 to 30 and would like to maybe use hydrocodone or a shorter acting opioid in place. I have recommended that we have transitioned her off of the long-acting morphine, so that she can take it as needed and hydrocodone 10/325 three times a day would be close to the morphine milligram equivalent dose, she is currently using. She is grateful for any pain relief that it provides and denies any adverse side effects. Constipation is managed and well afforded. Her activities are quite limited and I provided her opioids more in a palliative sense. She and her are careful about safeguarding their medication and they understand the importance of keeping medications away from others. I have given her 2 months of hydrocodone at this current dosing and we will have her come back to see us in the pain clinic in 01/2020. If this is working well, I will extend her prescriptions to 3 months. Medications were sent electronically. By: [id number] Danny Manrique MD /nt
[2020-01-03 08:59] VITALS: BP 128/65
--- NOTE | 2020-01-03 09:08 | NUR ---
Pain Clinic Assessment: 1. History of Osteoarthritis: Not Applicable History of Rheumatoid Arthritis: Left Upper Extremity Right Lower Extremity Right Upper Extremity 2. Height: 5 ft. 4 in. 162.6 cm. Weight: 161.0 lb. oz. 73.029 kg. Patient's BMI: 27.6 3. Vital Signs: BP: 128/65 Pulse: 83 Resp: 16 Temp: 02 Sat: 100 ECG Mon: 4. Pain Intensity: 4 5. Fall Risk: Dizziness: N Needs help standing or walking: N Fallen in the last 3 months: N Fall risk comments: fell but no dr visit-no injury 6. Patient on Blood Thinner: None 7. History of Hypertension: Y 8. Opioid Therapy greater than 6 weeks: Y Opiate Contract Signed: 10/11/15 9. Risk Assessment Tool Provided: LOW RISK 1 10. Functional Assessment Tool: 11. Recreational Drug Use: Never Drug Type: Tobacco Use: Never Smoker Tobacco Type: Amount or Packs/day: How Many Years: Alcohol Use: No Frequency: Quant:
== END ==
LOC: PAIN 06:55
PROVIDERS: ATTEND Anesthesiology Pain Medicine
DX: G89.4 Chronic pain syndrome (principal); G71.09 Other specified muscular dystrophies; M06.9 Rheumatoid arthritis, unspecified; J45.909 Unspecified asthma, uncomplicated; M86.9 Osteomyelitis, unspecified; F11.20 Opioid dependence, uncomplicated; Z79.899 Other long term (current) drug therapy

== ENCOUNTER → 2020-01-24 | Outpatient (CLI) | payer OTHER ==
[~2020-01-24] VITALS: Ht 152.4 cm; Wt 73.7 kg
[~2020-01-24] MED LIST changes: +MORPHINE SULFAT15 MG PO
[2020-01-24 13:20] VITALS: BP 136/70
--- NOTE | 2020-01-24 13:24 | NUR ---
Pain Clinic Assessment: 1. History of Osteoarthritis: Not Applicable History of Rheumatoid Arthritis: Left Upper Extremity Right Lower Extremity Right Upper Extremity 2. Height: 5 ft. 4 in. 152.4 cm. Weight: 162.4 lb. oz. 73.664 kg. Patient's BMI: 31.7 3. Vital Signs: BP: 136/70 Pulse: 73 Resp: 18 Temp: 02 Sat: 99 ECG Mon: 4. Pain Intensity: 3 5. Fall Risk: Dizziness: N Needs help standing or walking: N Fallen in the last 3 months: N Fall risk comments: fell but no dr visit-no injury 6. Patient on Blood Thinner: None 7. History of Hypertension: Y 8. Opioid Therapy greater than 6 weeks: Y Opiate Contract Signed: 10/11/15 9. Risk Assessment Tool Provided: LOW RISK 1 10. Functional Assessment Tool: 11. Recreational Drug Use: Never Drug Type: Tobacco Use: Never Smoker Tobacco Type: Amount or Packs/day: How Many Years: Alcohol Use: No Frequency: Quant:
--- NOTE | 2020-01-25 14:24 | HPC ---
[facility] [place] [address] PAIN MANAGEMENT CONSULTATION Name: NORMAN KENNEDY Room #: REG [facility] Conteh#: [id number] Admission: 01/24/20 Attend Phys: Radha Pruett Discharge: Date of : 60 Report #: [id number] CC: Radha Manrique MD DATE OF SERVICE: 01/24/2020 CHIEF COMPLAINT: Chronic pain. HISTORY OF PRESENT ILLNESS: This is a very pleasant 59-year-old female who returns to the pain clinic today with her to discuss her medications at her last visit with Dr. Danny Manrique. He transitioned her off her MS Contin onto hydrocodone. The patient had been hospitalized several times since we have last seen her and was slowly recovering. She felt at the visit, she would be able to decrease her medications further, stopping her morphine and starting short-acting hydrocodone. The patient has found that her pain has increased. She feels that she has more "peaks and valleys" of her pain since she has stopped her morphine. She believes that the hydrocodone just does not last like the morphine for her pain; therefore, at times she is requiring more pain medicine than she did when she was on the morphine. Today, she would like to return to her morphine. She is rating her pain score as 3-4, but had taken her pain pill right before coming to see us today. Pain is mostly located in her back and her left foot is worse with walking. She is wearing a boot on her left foot. At nighttime, she does have increased pain as well. She feels that sitting is most beneficial for her. She denies problems with constipation or daytime somnolence. ALLERGIES: No known drug allergies. CURRENT LIST OF MEDICATIONS: Hydrocodone 10/325 t.i.d., Senokot, atorvastatin, Jardiance, potassium, Lasix, amlodipine, gabapentin, insulin, baclofen, Nexium, Estrace, aspirin, Bystolic, Cymbalta, Symbicort, DHEA, Zetia, Singulair, NovoLog and Norvasc. PQRS: 1. She has osteo and known rheumatoid arthritis in her upper and lower extremities. Height is 5 feet 4 inches, weight is 162, BMI is 31. Vital signs, blood pressure 136/70, pulse is 73, respirations 18, oxygen sat is 99%. Pain score is 3/10. Fall risk. Denies dizziness, does not need help walking or standing, has not fallen in the last 3 months. The patient is not on any blood thinners, but does take medicine for hypertension. Her opioid therapy is greater than 6 weeks; therefore, an opioid signed contract is on the chart. Risk assessment is low. Functional assessment 51/70 2. Recreational drug use, she denies. She is not a smoker and does not drink alcohol. According to the prescription monitoring system, the patient is filling appropriately for her medications. She is due to fill her medications soon. Her morphine mEq according to the CDC guidelines is 30 MME. PHYSICAL EXAMINATION: GENERAL: This is alert and orientated 59-year-old female who appears her stated age, placing her current pain score at 3-4. HEENT: Normocephalic, atraumatic. Extraocular eye muscles are intact. She is wearing a mask. MUSCULOSKELETAL: She is in a wheelchair today. She has a soft boot on her left foot, needs assistance for standing and ambulation. Straight leg raising is positive bilaterally. Her lower extremity strength is diminished and deconditioned due to recent hospitalizations. Pain is in the lumbosacral region of her back. IMPRESSION: 1. Chronic intractable pain with multiple pain generators. 2. Myotonic muscular dystrophy. 3. Rheumatoid arthritis. 4. Recent osteomyelitis requiring resection of the calcaneus on her left foot. 5. Management of opioid medications. We reviewed the fact that opiate medications are being used to provide analgesia adequate to support activities of daily living, not attempting to achieve a specific pain score on the 0-10 Visual Analog Scale. The current opiate medications are providing sufficient analgesia to allow the patient to participate in activities of daily living. The patient is not exhibiting any aberrant behavior suggestive of drug diversion. The patient is not having any adverse reactions to medications. The patient is not suffering from daytime somnolence or mental acuity changes. The patient is managing opiate-induced constipation with appropriate xqdk-qqt-oocfwuc agents and dietary considerations. The patient was counseled on concern for caution with operating a motor vehicle while using opiate medications. A physical exam was performed and the patient's functional status was evaluated. All patients with back pain were advised against the bed rest greater than 4 days and were advised to return to normal activities. Pain score assessment was noted and the treatment plan was reviewed with the patient. All current medications, both prescribed and OTC were reviewed and reconciled on the electronic medical record. Tobacco screening was accomplished and smoking cessation was advised when indicated. BMI was noted and diet/exercise modification was recommended for all patients following outside normal parameters. I reviewed with the patient today their responsibilities to safeguard prescription medications, reviewed their responsibility to utilize medications only as prescribed by the physician. They are to seek and receive pain medications only from 1 physician group ( [facility]). They are to use 1 pharmacy and keep the clinic informed if they change pharmacies. Their responsibilities include making followup visits in a timely fashion and to avoid abrupt discontinuation of medication usage. Their responsibilities further include bringing their medications (bottles from the pharmacy with residual pills) to the visit for possible confirmation of pill counts and the patient understands it is their responsibility to submit to random drug screens to ensure both that the medications prescribed are present, and that no other controlled substances are present. All prescriptions provided today were generated electronically. PLAN: We discussed her treatment options with her today. She felt that the morphine was more beneficial in controlling her pain at a more steady level, is requesting to return to that medication. I have discussed returning to morphine, but at a b.i.d. dosing and taking an occasional hydrocodone as she needs to throughout the day. The patient is agreeable with this plan of care. We discussed it with Dr. Manrique who is also agreeable to send morphine sulfate 15 mg, #60 to her pharmacy and hydrocodone 10/325, #60. The patient is to take the lowest most effective dose of her hydrocodone whether it be half a pill or a whole pill. We will see her in a month and reassess her use of hydrocodone to see if we are able to decrease this further. The patient and family are agreeable with this plan. The patient is seen today in collaboration with Dr. Danny Manrique. <ELECTRONICALLY SIGNED> By: Radha Pruett 01/25/20 1424 [id number] Radha Pruett /nt
== END ==
LOC: PAIN 07:07
PROVIDERS: ATTEND Clinical Nurse Specialist Adult Health
DX: G89.4 Chronic pain syndrome (principal); M06.9 Rheumatoid arthritis, unspecified; G71.11 Myotonic muscular dystrophy; M86.8X7 Other osteomyelitis, ankle and foot; F11.20 Opioid dependence, uncomplicated; Z79.899 Other long term (current) drug therapy

== ENCOUNTER → 2020-02-17 | Outpatient (CLI) | payer OTHER ==
[~2020-02-17] VITALS: Ht 162.6 cm; Wt 73.5 kg
[~2020-02-17] MED LIST changes: +LANTUS100 UNIT/M SUBQ
[2020-02-17 12:48] VITALS: BP 115/63
--- NOTE | 2020-02-17 13:03 | NUR ---
Pain Clinic Assessment: 1. History of Osteoarthritis: Not Applicable History of Rheumatoid Arthritis: Left Upper Extremity Right Lower Extremity Right Upper Extremity 2. Height: 5 ft. 4 in. 162.6 cm. Weight: 162.0 lb. oz. 73.483 kg. Patient's BMI: 27.8 3. Vital Signs: BP: 115/63 Pulse: 75 Resp: 16 Temp: 02 Sat: 98 ECG Mon: 4. Pain Intensity: 8 5. Fall Risk: Dizziness: N Needs help standing or walking: Y Fallen in the last 3 months: N Fall risk comments: fell but no dr visit-no injury 6. Patient on Blood Thinner: None 7. History of Hypertension: Y 8. Opioid Therapy greater than 6 weeks: Y Opiate Contract Signed: 10/11/15 9. Risk Assessment Tool Provided: LOW RISK 1 10. Functional Assessment Tool: 11. Recreational Drug Use: Never Drug Type: Tobacco Use: Never Smoker Tobacco Type: Amount or Packs/day: How Many Years: Alcohol Use: No Frequency: Quant:
--- NOTE | 2020-02-18 09:51 | HPC ---
[facility] [place] [address] PAIN MANAGEMENT CONSULTATION Name: NORMAN KENNEDY Room #: REG RONNIE Conteh#: [id number] Admission: 02/17/20 Attend Phys: Radha Pruett Discharge: Date of : 60 Report #: [id number] CC: Radha Manrique MD DATE OF SERVICE: 02/17/2020 CHIEF COMPLAINT: Chronic low back pain. HISTORY OF PRESENT ILLNESS: This is a very pleasant 59-year-old female who returns to the pain clinic today to discuss her opioid medications. Over the past few visits we have been adjusting her medications at her request. She thought she would like to wean off her opioid medications or at least her long-acting morphine sulfate. We attempted to do that, but her pain did return, so last month, we restarted her on morphine 15 mg b.i.d. The patient today is reporting her pain is still elevated today, rating at an 8/10. She believes the hydrocodone is not effective in controlling her pain throughout the middle portion of the day. She would like to resume her morphine 15 mg 3 times a day. She reports most significantly her pain is in her lower back, but also in her left foot. She has an open sore that she is seeing wound therapy for that lesion and currently unable to wear her orthotics. She reports a constant, aching pain that she believes the medication is not controlling currently. She does deny any constipation at present. Her is here with her today for this visit. ALLERGIES: No known drug allergies. CURRENT LIST OF MEDICATIONS: Gabapentin 300 mg morning and midday and 600 mg at night, baclofen 10 mg tablets b.i.d., Nexium, Estrace, aspirin, Bystolic, Cymbalta, Symbicort, DHEA, Zetia, Singulair, NovoLog 70/30, Norvasc, Lantus, morphine sulfate 15 mg b.i.d., hydrocodone p.r.n., Senokot, atorvastatin, Jardiance, potassium, Lasix and Ambien. PQRS: 1. She does have rheumatoid arthritis in multiple joints and denies osteoarthritis. 2. Height is 5 feet 6 inches, weight is 162, BMI is 27. 3. Vital signs; blood pressure 115/63, pulse is 75, respirations 16, oxygen sat is 98%. 4. Pain score is 8/10. 5. Denies dizziness. Does need assistance with walking. She is in a wheelchair today and has not fallen in the last 3 months. 6. The patient is not on any blood thinners, but does take medicine for hypertension. 7. Her opioid therapy is greater than 6 weeks; therefore, an opioid signed contract is on the chart. Risk assessment is low. Functional assessment is 51/70. 8. Recreational drug use, she denies. She is not a smoker and does not drink alcohol. According to the prescription monitoring system, the patient is filling appropriately in a timely fashion. Her morphine milliequivalent had been 40 MME per day. PHYSICAL EXAMINATION: GENERAL: This is alert and orientated 59-year-old female who appears her stated age, placing her current pain score at 8/10. HEENT: Normocephalic, atraumatic. Extraocular eye muscles are intact. Mucous membranes are moist. She is wearing a mask. MUSCULOSKELETAL: She has a soft boot on her left foot, is in a wheelchair today. There is a dressing over her foot as well, which was not visualized. Her lower extremity strength is diminished and deconditioned bilaterally in her upper and lower extremities. She has pain in the lumbosacral region of her back that radiates into her legs. IMPRESSION: 1. Chronic intractable pain with multiple pain generators. 2. Myotonic muscular dystrophy. 3. Rheumatoid arthritis. 4. Osteomyelitis of her left foot. 5. Management of opioid medications under terms of written agreement. We reviewed the fact that opiate medications are being used to provide analgesia adequate to support activities of daily living, not attempting to achieve a specific pain score on the 0-10 Visual Analog Scale. The current opiate medications are providing sufficient analgesia to allow the patient to participate in activities of daily living. The patient is not exhibiting any aberrant behavior suggestive of drug diversion. The patient is not having any adverse reactions to medications. The patient is not suffering from daytime somnolence or mental acuity changes. The patient is managing opiate-induced constipation with appropriate [id number]-[id number] agents and dietary considerations. The patient was counseled on concern for caution with operating a motor vehicle while using opiate medications. PLAN: 1. We discussed treatment options with the patient today. The patient feels that she had better pain control when she was taking morphine sulfate 15 mg 3 times a day. This is equivalent to 45 morphine milliequivalents according to CDC guidelines. I believe she would benefit from returning back to this dose keeping her pain more constant level and so the peaks and valleys she has been experiencing with the hydrocodone. She is still below the CDC guidelines. She would not require any breakthrough pain medicine while taking this dose. The patient and family are agreeable with this plan. We will send electronically the medications for 3 months. 2. I will refill her gabapentin. The patient states she has decreased this slightly taking 300 mg 4 times a day, quantity 360 with one additional refill for a total of 6 months will be sent electronically. 3. We briefly talked about constipation and that it may increase the medications as far as [id number] MiraLax or slow move tea that she may utilize if need be. The patient is seen today in collaboration with Dr. Manrique. <ELECTRONICALLY SIGNED> By: Radha Pruett 02/18/20 [id number] Radha Pruett /wyatt
== END ==
LOC: PAIN 06:54
PROVIDERS: ATTEND Clinical Nurse Specialist Adult Health
DX: G89.4 Chronic pain syndrome (principal); M86.9 Osteomyelitis, unspecified; M06.9 Rheumatoid arthritis, unspecified; Z79.891 Long term (current) use of opiate analgesic

== ENCOUNTER → 2020-06-08 | Outpatient (CLI) | payer OTHER ==
[~2020-06-08] VITALS: Ht 162.6 cm; Wt 73.5 kg
[~2020-06-08] MED LIST changes: +NEURONTIN300 MG PO; +XARELTO10 M1 PO
[2020-06-08 11:27] VITALS: BP 132/74
--- NOTE | 2020-06-08 11:31 | NUR ---
Pain Clinic Assessment: 1. History of Osteoarthritis: DENIES History of Rheumatoid Arthritis: Left Upper Extremity Right Lower Extremity Right Upper Extremity 2. Height: 5 ft. 4 in. 162.6 cm. Weight: 162.0 lb. oz. 73.483 kg. Patient's BMI: 27.8 3. Vital Signs: BP: 132/74 Pulse: 75 Resp: 14 Temp: 02 Sat: 100 ECG Mon: 4. Pain Intensity: 6 5. Fall Risk: Dizziness: N Needs help standing or walking: Y Fallen in the last 3 months: N Fall risk comments: USES WC 6. Patient on Blood Thinner: None 7. History of Hypertension: Y 8. Opioid Therapy greater than 6 weeks: Y Opiate Contract Signed: 10/11/15 9. Risk Assessment Tool Provided: LOW RISK 1 10. Functional Assessment Tool: 11. Recreational Drug Use: Never Drug Type: Tobacco Use: Never Smoker Tobacco Type: Amount or Packs/day: How Many Years: Alcohol Use: No Frequency: Quant:
== END ==
LOC: PAIN 07:02
PROVIDERS: ATTEND Clinical Nurse Specialist Adult Health
DX: M54.5 Low back pain (principal); G89.29 Other chronic pain; G89.4 Chronic pain syndrome; G71.11 Myotonic muscular dystrophy; M06.9 Rheumatoid arthritis, unspecified; F11.20 Opioid dependence, uncomplicated; Z88.8 Allergy status to other drugs, medicaments and biological substances; Z79.899 Other long term (current) drug therapy

== ENCOUNTER → 2020-12-18 | Outpatient (CLI) | payer OTHER ==
[~2020-12-18] MED LIST changes: +SYNTHROID100 MC1 PO
[2020-12-18 13:15] VITALS: BP 140/52
--- NOTE | 2020-12-18 13:21 | NUR ---
Pain Clinic Assessment: 1. History of Osteoarthritis: DENIES History of Rheumatoid Arthritis: Left Upper Extremity Right Lower Extremity Right Upper Extremity 2. Height: ft. in. cm. Weight: lb. oz. kg. Patient's BMI: 3. Vital Signs: BP: 140/52 Pulse: 73 Resp: 18 Temp: 02 Sat: 100 ECG Mon: 4. Pain Intensity: 7 5. Fall Risk: Dizziness: N Needs help standing or walking: Y Fallen in the last 3 months: N Fall risk comments: USES WC 6. Patient on Blood Thinner: XARELTO 7. History of Hypertension: Y 8. Opioid Therapy greater than 6 weeks: Y Opiate Contract Signed: 10/11/15 9. Risk Assessment Tool Provided: LOW RISK 1 10. Functional Assessment Tool: 11. Recreational Drug Use: Never Drug Type: Tobacco Use: Never Smoker Tobacco Type: Amount or Packs/day: How Many Years: Alcohol Use: No Frequency: Quant:
== END ==
LOC: PAIN 11:57
PROVIDERS: ATTEND Anesthesiology Pain Medicine
DX: M96.1 Postlaminectomy syndrome, not elsewhere classified (principal); M54.16 Radiculopathy, lumbar region; G89.4 Chronic pain syndrome; M06.9 Rheumatoid arthritis, unspecified; E11.9 Type 2 diabetes mellitus without complications; J45.909 Unspecified asthma, uncomplicated; Z79.4 Long term (current) use of insulin; Z79.899 Other long term (current) drug therapy; Z79.891 Long term (current) use of opiate analgesic

== ENCOUNTER → 2021-05-28 | Outpatient (CLI) | payer BC ==
[~2021-05-28] VITALS: Ht 162.6 cm; Wt 77.1 kg
[2021-05-28 12:39] VITALS: BP 143/71
--- NOTE | 2021-05-28 12:44 | NUR ---
Pain Clinic Assessment: 1. History of Osteoarthritis: DENIES History of Rheumatoid Arthritis: Left Upper Extremity Right Lower Extremity Right Upper Extremity 2. Height: 5 ft. 4 in. 162.6 cm. Weight: 170.0 lb. oz. 77.112 kg. Patient's BMI: 29.2 3. Vital Signs: BP: 143/71 Pulse: 73 Resp: 16 Temp: 02 Sat: 97 ECG Mon: 4. Pain Intensity: 6 5. Fall Risk: Dizziness: N Needs help standing or walking: Y Fallen in the last 3 months: N Fall risk comments: USES WC 6. Patient on Blood Thinner: XARELTO 7. History of Hypertension: Y 8. Opioid Therapy greater than 6 weeks: Y Opiate Contract Signed: 10/11/15 9. Risk Assessment Tool Provided: LOW RISK 1 10. Functional Assessment Tool: 11. Recreational Drug Use: Never Drug Type: Tobacco Use: Never Smoker Tobacco Type: Amount or Packs/day: How Many Years: Alcohol Use: No Frequency: Quant:
== END ==
LOC: PAIN 09:19
PROVIDERS: ATTEND Clinical Nurse Specialist Adult Health
DX: M54.16 Radiculopathy, lumbar region (principal); N39.0 Urinary tract infection, site not specified; M06.9 Rheumatoid arthritis, unspecified; G71.11 Myotonic muscular dystrophy; M54.50 Low back pain, unspecified; G89.29 Other chronic pain; Z79.899 Other long term (current) drug therapy; Z79.4 Long term (current) use of insulin